=== PATIENT | female | born 1950 | race Caucasian/White ===

== ENCOUNTER → 2019-12-22 09:06 | Outpatient (CLI) | payer MEDICARE, OTHER, SELFPAY ==
--- NOTE | 2019-12-22 | DI.US.S_ITS ---
PROCEDURE: US ABDOMEN COMPLETE INDICATIONS: Unspecified abdominal pain TECHNIQUE: Real-time scanning was performed of the abdominal and retroperitoneal organs, with image documentation. COMPARISON: [facility], CT, ABDOMEN WITH CONTRAST, 12/31/2010, 13:28. [facility], US, ABDOMEN COMPLETE, 12/31/2010, 18:55. FINDINGS: Overall scan quality is limited by bowel gas. Liver: Liver is normal in size and homogeneous in echotexture. Gallbladder: The gallbladder is poorly seen, secondary to overlying bowel gas. No findings of gallstones or sludge are seen. The gallbladder wall is not thickened, measuring 3 mm or less. No specific pericholecystic fluid is seen. The sonographic Puri sign is negative. Biliary ducts: Intrahepatic bile ducts are non-dilated. Extrahepatic bile duct caliber measures 4 mm. Normal is 6-7 mm or less in diameter, or 10 mm or less post-cholecystectomy. Pancreas: Not well seen. Spleen: Spleen is normal in size and homogeneous in echotexture. Kidneys: Kidneys are normal in size and echotexture. Right kidney measures 9.2 cm long; left kidney measures 11.9 cm long. No solid masses. Moderate left-sided hydronephrosis is seen. The left proximal ureter measures 2.2 cm. A 5 mm left kidney echogenic focus is seen. Aorta: Visualized aorta is normal in caliber at less than 3 cm. Iliacs: Proximal common iliac arteries are normal in caliber at less than 2.5 cm. IVC: Intrahepatic inferior vena cava is patent. Miscellaneous: No free abdominal fluid. IMPRESSION: Moderate left-sided hydronephrosis, with a prominent proximal ureter. If clinically appropriate, please consider a follow-up CT study for further evaluation. An apparent 5 mm nonobstructing left-sided kidney stone is seen. The gallbladder demonstrates a normal sonographic appearance. No biliary dilatation is seen. Dictated by: Neeraj Hua M.D. on 12/22/2019 at 9:44 Approved by: Neeraj Hua M.D. on 12/22/2019 at 9:47
== END ==
PROVIDERS: Family Provider Family Medicine; PCP Family Medicine; Referring Provider Family Medicine; Visit Provider Family Medicine
DX: R10.9 Unspecified abdominal pain (principal); N20.0 Calculus of kidney; N13.30 Unspecified hydronephrosis
CPT/HCPCS: 76700

== ENCOUNTER → 2019-12-27 12:03 | Outpatient (CLI) | payer MEDICARE, OTHER, SELFPAY ==
--- NOTE | 2019-12-27 13:24 | DI.CT.S_ITS ---
PROCEDURE: CT ABDOMEN PELVIS W CON INDICATIONS: UNSPECIFIED ABD. PAIN TECHNIQUE: After the administration of oral and intravenous contrast, 5 mm thick sections acquired from the diaphragms to the symphysis. 5 mm thick coronal and sagittal reformats were performed. For radiation dose reduction, the following was used: automated exposure control, adjustment of mA and/or kV according to patient size. COMPARISON: [facility], CT, ABDOMEN WITH CONTRAST, 12/31/2010, 13:28. FINDINGS: Image quality: Excellent. ABDOMEN: Lung bases: Lung bases are clear. Heart size is normal. Solid organs: Liver is normal in size and enhancement. Gallbladder is within normal limits . Biliary system is non-dilated. Pancreas enhances normally. Spleen is normal in size and enhancement. No adrenal nodules. Kidneys are normal in size and enhancement, without hydronephrosis. Peritoneum and bowel: Moderate hiatal hernia. Stomach and small bowel are within normal limits. Colon is nondistended. There is diverticulosis of the descending and sigmoid colon. Moderate thickening of the proximal sigmoid colon is present, which demonstrates moderate surrounding fat stranding. There is a contained region of extra colonic gas and ill-defined soft tissue density within the soft tissues at the superomedial aspect of the proximal sigmoid colon, spanning roughly 32 mm. No free fluid or air. Normal appendix. Nodes and vessels: No retroperitoneal or mesenteric adenopathy. Aorta and inferior vena cava are normal in caliber. Miscellaneous: No ventral hernias. PELVIS: Genitourinary: Bladder wall thickness is normal. Miscellaneous: No inguinal hernias or adenopathy. Bones: No suspicious bony lesions. No vertebral body compression fractures. IMPRESSION: 1. Diverticulitis of the sigmoid colon associated with a contained perforation and extra colonic gas. No definite fluid in this region to indicate abscess. Close clinical follow-up with repeat imaging if clinically warranted is recommended to exclude developing abscess. 2. Follow-up colonoscopy is recommended to exclude underlying neoplasm. 3. Normal appendix. 4. Hiatal hernia. Dictated by: Zoila Marcial M.D. on 12/27/2019 at 14:18 Approved by: Zoila Marcial M.D. on 12/27/2019 at 14:24
== END ==
PROVIDERS: Family Provider Family Medicine; PCP Family Medicine; Referring Provider Family Medicine; Visit Provider Family Medicine
DX: R10.9 Unspecified abdominal pain (principal); K57.32 Diverticulitis of large intestine without perforation or abscess without bleeding; K44.9 Diaphragmatic hernia without obstruction or gangrene
CPT/HCPCS: 74177; Q9967

== ENCOUNTER → 2021-02-08 09:04 | Outpatient (CLI) | payer MEDICARE, OTHER, SELFPAY ==
[2021-02-08 10:48] LABS: COVID19 -Nasal RAPID Negative (Negative)
== END ==
PROVIDERS: Family Provider Family Medicine; PCP Family Medicine; Visit Provider Surgery
DX: Z01.812 Encounter for preprocedural laboratory examination (principal); Z20.822 Contact with and (suspected) exposure to COVID-19
CPT/HCPCS: 87635; C9803

== ENCOUNTER 2021-02-11 08:51 | Day surgery (SDC) | payer MEDICARE, OTHER, SELFPAY ==
[2021-02-11] VITALS (8 sets, daily range): BP systolic 96–117; BP diastolic 64–86; PULSE 70–82; RESP 12–18; TEMP 36.8; O2SAT 89–96; BMI 34.0
[2021-02-11] MEDS: LACTATED RINGERS 1,000 ML 200 ML IV (09:28)
--- NOTE | 2021-02-11 09:37 | PM.HP.1 ---
History of Present Illness History of Present Illness Date Patient Seen: 02/11/21 Time Patient Seen: 09:38 Chief complaint: DX COLONOSCOPY Narrative: 70-year-old woman with a history of uncomplicated diverticulitis here for a screening colonoscopy. She had an episode of diverticular disease within the past 1 year which was treated successfully with oral antibiotics. Her last colonoscopy was approximately 10 years ago and normal at that time. No personal or family history of intestinal malignancy. No blood per rectum hematemesis nausea vomiting unintentional weight loss. She has a history of irritable bowel syndrome and is followed by an outside GI group. Patient History Medical History Glaucoma Hx of pyloric stenosis Surgical History History of Hx of cataract surgery Hx of hysterectomy Hx of tonsillectomy Status post surgery (02/09/17) Family & Social History Family History Mother Ovarian cancer Father Lung cancer Social History: household members spouse Tobacco & Substance use: Smoking Status Never smoker alcohol intake never Substance Use Type does not use Meds Home Medications and Allergies Home Medications Medication Instructions Recorded Confirmed Type latanoprost 0.005 % eye drops #0 07/09/11 11/22/20 History (Xalatan) dorzolamide 22.3 mg-timolol 6.8 1 drp EYE-BOTH BID ml 11/22/20 02/11/21 History mg/mL eye drops meloxicam 7.5 mg tablet 7.5 mg PO DAILY tab 11/22/20 02/11/21 History Allergies Allergy/AdvReac Type Severity Reaction Status Date / Time adhesive [ADHESIVE] AdvReac Unknown redness Verified 11/22/20 10:35 Exam Vital Signs (past 8 hours): - 02/11/21 09:29 Temperature 98.2 F Pulse Rate 82 Respiratory Rate 16 Blood Pressure 105/74 Pulse Oximetry 95 Oxygen Delivery Method Room Air Narrative Exam Narrative: Constitutional-She is oriented to person, place and time. No apparent distress Cardiovascular- regular rate, no peripheral edema Pulmonary-unlabored respiratory effort, no audible wheezing Abdominal-soft, non-tender, non-distended \ Assessment & Plan Assessment and plan (1) Screening for colon cancer: Status: Acute Assessment & Plan narrative: The patient requires colorectal screening and colonoscopy is recommended. Technical details were discussed. Risks, benefits, alternatives explained. Risks including but not limited to myocardial infarction, aspiration, bleeding, pain, missed lesion, incomplete examination, need for further radiographic studies, colonic perforation, and need for major abdominal surgery were discussed. All questions were answered to their satisfaction, and they are in agreement with this plan. Time Spent With Patient Critical Care time: I spent a total of [] minutes of critical care time on this patient's care today; this time is exclusive of procedural time.
[2021-02-11] MEDS: MIDAZOLAM 5 MG/5 ML VIAL IV (09:47)
[2021-02-11] MEDS: fentaNYL 250 MCG/5 ML INJ IV (09:51)
--- NOTE | 2021-02-11 09:53 | P.OP.COLON_ITS ---
Operative Date/Time/Diagnoses Date of procedure: 02/11/21 Time of procedure: 09:53 Pre-op diagnosis: Diverticulitis Post-op diagnosis: other (Tortuous colon, diverticulosis) Procedure & Clinicians Study performed: Incomplete colonoscopy Indications: Diverticulitis Surgeon: Redd Reynolds Procedure Notes Procedure in detail: Medications: Conscious sedation using 5mg IV midazolam and 150mcg IV of fentanyl The history and physical was performed/updated and the patient is ASA class is 2. The procedure was discussed in detail with the patient. Potential risks complications including infection, bleeding, missed diagnosis, perforation, need for surgery, and were explained. Their questions were answered and informed consent was obtained. Patient was brought to the procedure room and placed standard monitoring equipment. The patient's vital signs were monitored continuously throughout the entire procedure. Prior to starting time-out was performed. The patient was placed in the left lateral recumbent position. Procedural sedation was administered. Examination began with a thorough inspection of the perianal area there was no evidence of fissures, fistulae, external hemorrhoids or cutaneous malignancy. The colonoscopy scope was then placed into the anal canal and was advanced forward. The sigmoid colon was notable for extensive diverticulosis however there was a pinpoint within the sigmoid colon that was extremely tortuous and despite using a pediatric scope repositioning the patient and applying external pressure no safe forward progress could be made. The procedure was aborted at this point and the scope was carefully withdrawn examining the mucosa in all directions. The patient tolerated the procedure well. They will be discharged once criteria are met. The prep was of good/excellent quality. The sedation time was 10 mi nutes. Specimen(s): none sent Complications: none Impression: Incomplete colonoscopy. Diverticulosis Post-procedure Plan for aftercare: Will schedule barium enema Disposition: same day surgery
--- NOTE | 2021-02-11 10:16 | SUR.PHASEI ---
received to PACU after colonoscopy with sedation. Report received from BERHANE Lawson.
--- NOTE | 2021-02-11 11:07 | SUR.PHASEII ---
patient ambulates to restroom with steady gait. states feels ready for dc. off o2 and has done well. sats remain >90%
== END 2021-02-11 11:08 | disposition home or self-care (01) ==
PROVIDERS: Family Provider Family Medicine; PCP Family Medicine; Referring Provider Surgery; Visit Provider Surgery
PROC: 0DJD8ZZ Inspection of Lower Intestinal Tract, Via Natural or Artificial Opening Endoscopic (ICD-10-PCS; CPT 45378; principal; 2021-02-11 10:00)
DX: Z12.11 Encounter for screening for malignant neoplasm of colon (principal); Z87.19 Personal history of other diseases of the digestive system; K57.30 Diverticulosis of large intestine without perforation or abscess without bleeding; Z53.8 Procedure and treatment not carried out for other reasons
CPT/HCPCS: G0121; 99152; J2250; J3010

== ENCOUNTER → 2021-02-28 08:55 | Outpatient (CLI) | payer MEDICARE, OTHER, SELFPAY ==
--- NOTE | 2021-02-28 08:57 | DI.RAD.S_ITS ---
PROCEDURE: FL BARIUM ENEMA W AIR CONTRAST INDICATIONS: incomplete colonoscopy COMPARISON: None. FINDINGS: KUB: Pre-procedural firmware test engineer film demonstrates a normal bowel gas pattern. No suspicious abdominal calcifications. No suspicious bony lesions. Colon: There is fairly rapid filling of the colon with contrast. The patient did not tolerate gaseous distension well. There is severe diverticulosis predominantly affecting the sigmoid colon and descending colon. There are small areas of narrowing in the descending colon which are transitory and likely due to peristalsis. However, there is a area of persistent narrowing in the distal sigmoid colon measuring approximately 2.8 cm in length which persisted despite attempted gaseous distension and additional barium enema. This was best seen on the lateral projection. The appendix is unremarkable. IMPRESSION: 1. Suspected stricture at the distal sigmoid colon measuring at approximately 2.8 cm in length. This could be due to colonic adenocarcinoma or post inflammatory. Correlation with CT from December 2019 demonstrates prior diverticulitis just proximal to this region. 2. Extensive diverticulosis. Preliminary results called to office of Dr. Reynolds at time of dictation. Dictated by: Lazaro Haley M.D. on 02/28/2021 at 11:42 Approved by: Lazaro Haley M.D. on 02/28/2021 at 11:51
== END ==
PROVIDERS: Family Provider Family Medicine; PCP Family Medicine; Referring Provider Surgery; Visit Provider Surgery
DX: Z12.11 Encounter for screening for malignant neoplasm of colon (principal); K57.30 Diverticulosis of large intestine without perforation or abscess without bleeding; K56.609 Unspecified intestinal obstruction, unspecified as to partial versus complete obstruction
CPT/HCPCS: 74280

== ENCOUNTER → 2021-05-06 09:08 | Outpatient (CLI) | payer MEDICARE, BC, SELFPAY ==
[2021-05-06 12:24] LABS: COVID19 -Nasal RAPID Negative (Negative)
== END ==
PROVIDERS: Family Provider Family Medicine; PCP Family Medicine; Visit Provider Surgery
DX: Z01.812 Encounter for preprocedural laboratory examination (principal); Z20.822 Contact with and (suspected) exposure to COVID-19
CPT/HCPCS: 87635

== ENCOUNTER 2021-05-08 07:42 | Inpatient (IN) | payer MEDICARE, BC, SELFPAY ==
[2021-04-23 09:48] VITALS: BMI 34.3
[2021-05-08] VITALS (17 sets, daily range): BP systolic 101–133; BP diastolic 62–89; PULSE 87–106; RESP 8–21; TEMP 36.2–36.7; O2SAT 93–99; BMI 34.3
--- NOTE | 2021-05-08 | PATH_ITS ---
[facility] Accession Number: [id number] No. of containers..02 Tissue . 01 Material submitted: . PART A: sigmoid colon - SEGMENT SIGMOID COLON PART B: stomach - ANASTOMOTIC DONUTS . 02 Diagnosis: A. Sigmoid Colon, Sigmoidectomy: Segment of colon with diverticulosis and serosal adhesions. Four benign pericolonic lymph nodes. Negative for active inflammation, granulomas, dysplasia or malignancy. . B. Anastomotic Donuts: Colonic tissue with no diagnostic abnormality. Negative for active inflammation, granulomas, dysplasia or malignancy. MRV 05/13/2021 1403 Local . 02 Electronically signed: . Adolfo Willard MD, PhD, Pathologist NPI- [id number] . 01 Gross description: . A. Received in formalin, labeled with the patient's name and designated segment sigmoid colon is a 17.0 cm long by 3.0 cm in diameter segment of colon, received closed with stapled ends (differentially inked blue and black). The serosa is focally disrupted with focal dense fibrous adhesions in the midportion and a moderate amount of attached fat. The wall is focally thickened up to 0.6 cm, otherwise 0.3 cm with between 5 and 10 diverticula up to 1.0 cm, and focally extending to within 0.1 cm from the fat surface. A discrete perforation is not grossly identified. The mucosa is pink-melvin with normal folding; no mucosal lesions are identified. Partial lymph node dissection yields four 0.2-0.5 cm melvin-pink possible lymph nodes. Gym Attendant sections are submitted as follows: . A1: Gym Attendant mucosal margins, perpendicular. A2-A3: Gym Attendant diverticula nearest surface, most suspicious for perforation (fat surface inked orange). A4: Four possible lymph nodes. . B. Received in formalin, labeled with the patient's name and designated anastomotic donuts are two 1.8 x 1.6 x 0.8 cm and 2.2 x 2.2 x 1.2 cm portions of annular melvin, focally hemorrhagic mucosa, the larger of which has a suture (inked blue). No discrete lesions are identified. Gym Attendant sections are submitted in B1. (CLEOPATRA:[id number]) /MRV 05/09/2021 1410 Local . 02 Pathologist provided ICD-10: K57.92 . 02 CPT . 554771, 219259 Specimen Comment: A courtesy copy of this report has been sent to [phone] Performed at: 01 [facility] [address] [facility], [place], [place] [id number] MD Hong Uribe MD Phone: [phone] Performed at: 02 [facility] [address] [place], [place] [id number] MD Gisell Galaviz MD Phone: [phone]
--- NOTE | 2021-05-08 08:36 | PM.PREOP ---
Pre-operative Note COVID-19 COVID-19 status: Negative Result date/Date tested (Pos, Neg/Pending): 05/06/21 Criteria for continued procedure: Non-surgical alternatives not available or appropriate per current SOC Interval Note History & Physical reviewed/Exam performed by Physician: Yes Changes to H&P: No
[2021-05-08] MEDS: LACTATED RINGERS 1,000 ML 100 ML IV ×4 (08:40→16:59)
--- NOTE | 2021-05-08 08:48 | PM.PREOP ---
Pre-operative Note Interval Note History & Physical reviewed/Exam performed by Physician: Yes Changes to H&P: No
[2021-05-08] MEDS: PIPERACILLIN/TAZO 4.5 GM in SODIUM CHLORIDE 0.9% 100 ML 200 ML IV (09:10)
--- NOTE | 2021-05-08 09:27 | SUR.OPER ---
Lithotomy on padded OR bed. [place] Pad Positioner under torso. Head on pillow, arms padded and tucked at sides. Legs secured in padded yellow fins stirrups.
[2021-05-08] MEDS: MINERAL OIL LIGHT TOPICAL 10 ML TOP (09:30)
--- NOTE | 2021-05-08 09:43 | PM.OP.1 ---
Procedure & Clinicians Procedure: Cystoscopy with bilateral ureteral catheter placement, Lynch catheter placement Same procedure as scheduled: Yes Surgeon: Cj Crane Click Yes if Unassisted: Yes Anesthesia Type: General Operative Notes Findings: External genitalia are normal. Urethral meatus is normal, urethra is normal along its length with normal mucosa. The ureteral orifices in normal position with clear efflux. There is moderate trabeculation within the bladder, the bladder mucosa is normal without sign of malignancy, fistula or other abnormality. There are no inflammatory changes or perceived thickening of the bladder. The lighted ureteral catheters were left in good position. A 16 Malagasy 5 cc Lynch catheters left in place with 10 cc of sterile water in the balloon the ureteral catheters having then Tegaderm to the Lynch catheter. Closure Type: not applicable Specimen(s): none sent Applied: catheter and other (Bilateral lighted ureteral catheters) Estimated Blood Loss (mL): 0 Blood products transfused: none Procedure in detail: After informed consent was obtained, the patient was identified, and brought to the operating room. The patient was then placed in a supine position on the operative table. Anesthesia was induced and maintained. After ensuring an adequate level of anesthesia the patient was transitioned to the lithotomy position. She was then prepped, draped and prepared in a sterile fashion for transurethral procedure. After prepping draping and ensuring an adequate level of anesthesia 21 Malagasy cystoscope was passed into the bladder via the urethra under direct vision. Cystoscopy was then performed and the findings noted. The left ureteral orifice was then identified and the sheath for the lighted ureteral catheter was passed up and into the left collecting system with the aid of a guidewire. Attention was then turned to the right ureteral orifice which was identified and the sheath was passed up and into the right collecting system without the aid of a guidewire. This right-sided catheter was marked on its distal terminus with 3 black markings. The lighted fiberoptic portion was then passed up and into each of the she has. Secured in place and left in position 16 Malagasy catheter was then passed through the urethra and into the bladder with the balloon was filled with 10 cc of sterile water. The ureteral catheters were then secured to the Lynch catheter via Tegaderm. With these maneuvers in place the catheter was placed to gravity drainage and the patient went on to laparoscopic procedure by Dr. Reynolds which will be dictated under separate cover. For this portion of the procedure the patient tolerated the procedure well and there were no complications. The catheters will be removed at the end of the procedure save the Lynch catheter which will be removed by Dr. Reynolds when no longer needed. Complications: none Post-operative Condition: stable Disposition: other (Per Dr. Reynolds) Plan for aftercare: Per Dr. Reynolds
[2021-05-08] MEDS: BUPIVACAINE 0.25% (PF) VIAL 30 ML INJ (10:27)
--- NOTE | 2021-05-08 14:27 | P.OP_ITS ---
Operative Date/Time/Diagnoses Date of procedure: 05/08/21 Time of procedure: 14:27 Pre-op diagnosis: Diverticulitis Post-op diagnosis: same Procedure & Clinicians Procedure: Laparoscopic assisted sigmoid colectomy Same procedure as scheduled: Yes Indications: 70-year-old woman history of complicated diverticulitis with perforation and abscess formation who developed a sigmoid stricture. She has undergone a colonoscopy the scope was unable to pass the stricture and a subsequent barium enema which confirmed the findings no other lesions within the colon. Surgeon: Redd Reynolds Cephalometric Technician: Pilo Herr Anesthesia Type: General Operative Notes Findings: Left ureter adherent to the lateral wall the sigmoid colon.Negative leak test Specimen(s): other (Sigmoid colon) Estimated Blood Loss (mL): 100 Procedure in detail: Patient was brought to the operating room placed supine on the table. Bilateral lower extremity compression devices were applied. She was intubated and received Zosyn prior to skin incision. Ureteral stents were placed by Dr. Crane of Urology. An infraumbilical incision was made the fascia was grasped elevated sharply incised the abdomen was entered atraumatically a balloon trocar was placed and pneumoperitoneum was established. General inspection of the abdomen was made. The sigmoid colon was adherent to the lateral wall where it had previously perforated and formed an abscess. There were minimal adhesions in the remainder of the abdomen. Additional 5 mm working ports were placed in the right and left lower quadrant and suprapubic. The sigmoid colon was approached in a lateral to medial fashion. The white line of Toldt was incised from the sigmoid colon to the level of the splenic flexure. The colon was mobilized medially. We then turned our attention towards the pelvis. The lateral aspect of the sigmoid colon was densely adherent to the sidewall. With the lighted ureteral stents we were able to identify the ureter as it crossed the iliac vessels made is way along the pelvic sidewall. The adhesions between the ureter in the sigmoid were sharply incised but this was not sufficient in order to separate the 2 structures safely under laparoscopic conditions. Therefore the procedure was converted to an open operation at this point. A generous midline incision was made. The ureter could now be palpated with its stent in place and the plane between the left ureter in the lateral wall the sigmoid colon was then developed with sharp careful dissection. The ureter could now be swept posteriorly and out of harm's way. The sigmoid colon was then divided at its proximal point were the colonic tissue with soft pliable with a TA a curved is stapler. The mesentery to the sigmoid colon was then divided with the LigaSure close to the wall of the bowel. This was continued down on to the proximal rectum. The junction between the sigmoid colon and the rectum where the tenia converged was identified and then the colon was transected just below the transition point in the mid rectum with a 2nd firing of the TA curved stapler. The descending colon did not reach the pelvis without tension and therefore it was further mobilized from the lateral wall all the way to the level of the spleen. The staple line was then transected from the colon and a 29 EEA anvil was then placed into the colon and pursestring with 3-0 Prolene. The and the bowel was trimmed to remove any extraneous tissue make sure that the staple line would be unobstructed. The EEA stapler was then inserted into the rectum and advanced forward. It is point was deployed and then the staple and the anvil were who connected under direct visualization. It was critical to have the assistance of my partner Dr. Pilo Herr for the creation of the anastomosis and for assistance with exposure in this obese woman with challenging anatomy given her previous diverticular perforation and the adherent nature of the ureter to the sigmoid colon. The anastomosis was then tested with the colonoscope insufflating the rectum there was no evidence of leak. A 19 [facility] [place] Jaya drain was then placed into the pelvis. Fascia was closed from above and below with 1. PDS suture. A 10 [place] Lucian drain was then placed into the subcutaneous space and brought out through the left abdominal wall. Subcutaneous tissue was then closed over the drain with 3-0 Vicryl suture skin closed with josé miguel. Patient tolerated the procedure well was transferred to recovery room in stable condition. The stents were removed at the end of the operation. Complications: none Post-operative Condition: stable Disposition: Acute Care
[2021-05-08] MEDS: HYDROMORPHONE 2 MG INJ 0.5 MG IV (15:38)
[2021-05-08] MEDS: ONDANSETRON 4 MG/2 ML INJ IV (16:38)
[2021-05-08] MEDS: KETOROLAC 30 MG/ML VIAL IV ×2 (16:49→19:50)
[2021-05-08] MEDS: PIPERACILLIN/TAZO 3.375 GM in SODIUM CHLORIDE 0.9% 100 ML 25 ML IV (16:57)
[2021-05-08] MEDS: HYDROMORPHONE 0.5 MG INJ IV (17:44)
--- NOTE | 2021-05-08 17:50 | PC.ADMIT ---
[email or web address] Admission Note: The patient,Veronica Dupont,70 y/o, was given written information regarding hospital policies, unit procedures and contact persons. Patient's smoking status: Former smoker. Vital Signs - 8 hr 05/08/21 13:45 05/08/21 13:50 05/08/21 13:55 Temperature 97.4 F L 97.7 F Pulse Rate 101 H 95 H 97 H Respiratory Rate 11 L 13 14 Blood Pressure 112/73 111/65 101/65 Pulse Oximetry 98 98 97 05/08/21 14:00 05/08/21 14:30 05/08/21 14:45 Temperature Pulse Rate 100 H 102 H 93 H Respiratory Rate 11 L 21 11 L Blood Pressure 119/73 105/65 109/67 Pulse Oximetry 98 98 99 05/08/21 15:00 05/08/21 15:15 05/08/21 15:30 Temperature 97.4 F L 97.9 F 97.2 F L Pulse Rate 97 H 96 H 94 H Respiratory Rate 17 13 8 L Blood Pressure 117/73 121/78 123/80 Pulse Oximetry 98 97 05/08/21 15:50 05/08/21 16:20 Temperature 97.4 F L Pulse Rate 90 87 Respiratory Rate 15 20 Blood Pressure 129/89 129/89 Pulse Oximetry 97 97 Patient admitted from PACU at [address] Reynolds's service. Patient is alert and oriented but lethargic. Daughter at bedside. Midline incision, two drains, bonilla, PIV with LR @ 100mls/hr. Complaints of pain and nausea. On 2L O2 NC, spO2 >95%. BP & RR WNL, HR mildly elevated low 100's. Call light at bedside, able to make needs known.
[2021-05-08] MEDS: CYCLOBENZAPRINE 10 MG TABLET PO (21:14)
[2021-05-08] MEDS: DOCUSATE 100 MG CAPSULE PO (21:14)
[2021-05-08] MEDS: LATANOPROST 0.005% OPHTH 2.5 ML 1 DROPS EYE-BOTH (21:14)
[2021-05-08] MEDS: DORZOLAMIDE/TIMOLOL OPHTH 10 ML 1 DROPS EYE-BOTH (21:14)
[2021-05-08] MEDS: OXYCODONE IR 5 MG TABLET PO (23:16)
[2021-05-09] VITALS (8 sets, daily range): BP systolic 94–115; BP diastolic 54–75; PULSE 72–83; RESP 17; TEMP 36.2–36.6; O2SAT 87–96
[2021-05-09] MEDS: ACETAMINOPHEN 325 MG TABLET 650 MG PO ×5 (00:21→23:37)
[2021-05-09] MEDS: PIPERACILLIN/TAZO 3.375 GM in SODIUM CHLORIDE 0.9% 100 ML 25 ML IV ×2 (00:26→08:14)
[2021-05-09] MEDS: KETOROLAC 30 MG/ML VIAL IV ×4 (01:32→20:07)
[2021-05-09] MEDS: LACTATED RINGERS 1,000 ML 100 ML IV (03:05)
[2021-05-09 05:30] LABS: Add Manual Diff / Slide Review NO; Basophils Absolute Auto 0 /uL (0-100); Eosinophils Absolute Auto 0 /uL (0-450); Eosinophils Percent Auto 0.1 % (2-4); Hemoglobin 10.3 g/dL (12.0-16.0); Lymphocytes Absolute Auto 500 /uL (1100-4500); Lymphocytes Percent Auto 4.3 % (25-40); Mean Corpuscular HGB Conc 33.2 % (30-36); Mean Corpuscular Volume 90.3 fL (80-100); Monocytes Absolute Auto 1000 /uL (0-900); Monocytes Percent Auto 8.7 % (3-14); Neutrophils Absolute Auto 10400 /uL (1500-7000); Neutrophils Percent Auto 86.9 % (50-75); Platelet Count 189 X10^3/uL (150-400); Red Blood Cell Count 3.43 X10^6/uL (4.0-5.2); Red Cell Distribution Width 13.9 % (11.6-14.8)
[2021-05-09 05:42] LABS: BUN Creatinine Ratio 17.3 (6-22); Blood Urea Nitrogen 18 mg/dL (7-17); Calcium 7.7 mg/dL (8.4-10.2); Carbon Dioxide 26 mmol/L (22-32); Chloride 105 mmol/L (98-107); Estimated Glomerular Filt Rate 52.5 mL/min (>60); Glucose 143 mg/dL (80-110); HEMOLYSIS < 15 (0-50); Potassium 4.5 mmol/L (3.4-5.1); Sodium 136 mmol/L (137-145)
[2021-05-09] MEDS: OXYCODONE IR 5 MG TABLET PO ×5 (06:01→23:38)
[2021-05-09] MEDS: ENOXAPARIN 40 MG/0.4 ML SYRINGE SUBCUT (08:14)
[2021-05-09] MEDS: DOCUSATE 100 MG CAPSULE PO ×2 (08:16→20:46)
[2021-05-09] MEDS: CYCLOBENZAPRINE 10 MG TABLET PO ×3 (08:16→20:46)
[2021-05-09] MEDS: LATANOPROST 0.005% OPHTH 2.5 ML 1 DROPS EYE-BOTH ×2 (08:17→20:46)
[2021-05-09] MEDS: DORZOLAMIDE/TIMOLOL OPHTH 10 ML 1 DROPS EYE-BOTH ×2 (08:17→20:46)
--- NOTE | 2021-05-09 08:25 | PM.PNPO.1 ---
Subjective Subjective Date Patient Seen: 05/09/21 Time Patient Seen: 08:25 Interval history: No acute events. Tolerate sips of clears. No flatus or bowel movement. Exam Vital Signs (past 8 hours): - 05/09/21 03:00 Temperature 97.6 F Pulse Rate 83 Respiratory Rate 17 Blood Pressure 113/75 Pulse Oximetry 93 Oxygen Delivery Method Nasal Cannula Oxygen Flow Rate 2 Narrative Exam Narrative: General adult female alert oriented no acute distress Abdomen soft appropriately tender to palpation. Abdominal drains serosanguineous Objective Labs Result Diagrams: 05/09/21 05:10 05/09/21 05:10 Labs: Laboratory Results - last 24 hr 05/09/21 05/09/21 05:10 05:10 WBC 12.0 H RBC 3.43 L Hgb 10.3 L Hct 31.0 L MCV 90.3 MCH 30.0 MCHC 33.2 RDW 13.9 Plt Count 189 Neut % (Auto) 86.9 H Lymph % (Auto) 4.3 L [place] % (Auto) 8.7 Eos % (Auto) 0.1 L Baso % (Auto) 0.0 Neut # (Auto) 51111 H Lymph # (Auto) 500 L [place] # (Auto) 1000 H Eos # (Auto) 0 Baso # (Auto) 0 Sodium 136 L Potassium 4.5 Chloride 105 Carbon Dioxide 26 BUN 18 H Creatinine 1.04 Estimated GFR 52.5 L BUN/Creatinine Ratio 17.3 Glucose 143 H Calcium 7.7 L PFSH Medical History (Updated 05/08/21 @ 06:38 by Wanda Huynh RN) Diverticulitis Diverticulosis Eczema Glaucoma History of arthritis History of molar Hx of pyloric stenosis IBS (irritable bowel syndrome) (2010) Obesity Sigmoid stricture Surgical History (Updated 05/08/21 @ 08:45 by Wanda Huynh RN) History of History of surgery (1951) Hx of bilateral cataract extraction Hx of cataract surgery (01/2016) Hx of hysterectomy (1978) Hx of tonsillectomy (1954) S/P excision of lipoma Status post surgery (02/09/17) Family History Mother Ovarian cancer Father Lung cancer Social History marital status: number of children: 5 household members: spouse and children occupational status: employed Smoking Status: Former smoker alcohol intake: never substance use type: does not use Type(s) of exercise: none Assessment & Plan Post-op Postoperative Procedures: Procedures Operation Date: 05/08/21 08:45 Actual Procedure Side Surgeon s Cystoscopy w/Placement of Ureteral Stent Bilateral Cj Crane MD p Laparoscopically Assisted Sigmoid Colectomy Redd Reynolds MD Postoperative status narrative: 70-year-old woman postoperative day 1 status post laparoscopic assisted sigmoid colectomy for diverticulitis. Overall doing well. -Diet-clear liquid advanced as tolerated -remove Lynch catheter -decrease IV fluids -out of bed ambulate physical therapy consult today -total of 24 hours perioperative antibiotic -SCDs and Lovenox for VTE prophylaxis
--- NOTE | 2021-05-09 11:20 | PT.IIE ---
Current Diagnoses Diverticulitis of intestine, part unspecified, without perforation or abscess without bleeding (05/08/21) Surgery Performed Operation Date: 05/08/21 08:45 Actual Procedures s Cystoscopy w/Placement of Lighted Ureteral Stents(Bilateral) - Cj Crane MD p Laparoscopically Assisted Sigmoid Colectomy - Redd Reynolds MD Surgical History (Last Updated 05/08/21 @ 08:45 by Wanda Huynh, RN) Status post surgery (02/09/17) Medical History (Last Updated 05/08/21 @ 06:38 by Wanda Huynh, RN) Diverticulitis Diverticulosis Eczema Glaucoma History of arthritis History of molar Hx of pyloric stenosis IBS (irritable bowel syndrome) (2010) Obesity Sigmoid stricture Physical Therapy Inpatient Evaluation/Re-Eval M1 PT/OT-IP Prior Functional Status Start: 05/09/21 13:52 Freq: NEEDED Status: Active Protocol: Document 05/09/21 11:20 AB (Rec: 05/09/21 14:[facility] Medical Review Prior Functional Status Medical History Reviewed Yes Communication able to make needs known Mobility and Gait pt stated that she is independent with all mobilities and ambulation without AD Social History Household Members spouse,children Living Arrangements House Number of Floors (Floors) Two Floors Number of Stairs To Enter/Railing? pt stays on main level of the house 5 steps L rail ascending to enter Home Environment Standard Height Toilet,Walk in Shower Home Equipment Raised Toilet Seat Without Armrests Additional Social History Comment has safety frame on the toilet pt has an adjustable bed at home pt will have her spouse and daughter to assist her at home M2 PT-IP Current Condition Start: 05/09/21 13:52 Freq: NEEDED Status: Active Protocol: Document 05/09/21 11:20 AB (Rec: 05/09/21 14:05 AB [email or web address]) Physical Therapy Current Condition Current Condition Evaluation Date 05/09/21 Treatment Diagnosis s/p colectomy; difficulty in walking Onset Date 05/08/21 M3 PT-IP Subjective Start: 05/09/21 13:52 Freq: NEEDED Status: Active Protocol: Document 05/09/21 11:20 AB (Rec: 05/09/21 14:05 [facility] Subjective Physical Therapy Visit Type Type Initial Evaluation Visit Start Time 11:20 Visit Stop Time 11:58 Total Visit Minutes 38 Number of HEALTH RESEARCHER Visits 0 Physical Therapy Visit Comments Patient Comments agreeable to do PT; daughter in room with pt Therapy Pain Assessment Pain When Pain Assessed During Mobility Pain Present Pain Present Pain Reported Location right abd Intensity 5 Scale Used Numeric (0 - 10) M4 PT-IP Mobility and Gait Start: 05/09/21 13:52 Freq: NEEDED Status: Active Protocol: Document 05/09/21 11:20 AB (Rec: 05/09/21 14:05 AB [email or web address]) PT-Bed Mobility Assessment Rolling Type of Rolling Log Rolling Level of Assist Maximal Assistance Supine to Sit Supine to Sit Maximum Assistance PT-Transfer Assessment Sit to and From Stand Sit to and from Stand Moderate Assistance,Maximum Assistance,1 Person Assistance ,Use of Upper Extremities Equipment Transfer Assistive Device Gait Belt,Front Wheeled Walker Orthotic/Prosthetic Devices or Brace: No Transfers Transfer Destination Chair Transfer Technique ambulated Transfer Ability Level of Assist Moderate Assistance,Maximum Assistance,1 Person Assistance ,Use of Upper Extremities Comments Mobility Comments educated pt on abdominal precautions and log roll bed mobility. BP in supine: 83/52. completed log roll bed mobility supine to sit max A and max cues. able to sit on EOB SBA. BP: 115/54. no c/o dizziness but with increase pain. completed sit to stand mod to max A and cues and ambulated ~ 12 ft using FWW mod to max A. pt agreed to sit on chair. sat on chair and positioned. call light and table placed within reach. Gait Assessment Gait Gait Assistance Required: Moderate Assistance,Maximum Assistance,1 Person Assist Distance (Feet) 12 Able to Maintain Weight Bearing Status Yes During Gait Assistive Devices Assistive Device Gait Belt,Front Wheeled Walker Orthotic/Prosthetic Devices or Brace: No Gait Deviations General Gait Pattern Decreased Stride Length, Decreased Feet Clearance,Step- to Gait Factors Limiting Gait Function Factors Limiting Gait Function Decreased Activity Tolerance, Decreased Strength, Incoordination,Limited Range of Motion,Pain,Poor Balance, Poor Safety Awareness, Respiratory Distress PT-Balance Assessment Sitting Balance and Reactions Static Sitting Balance Ability Good Dynamic Sitting Balance Ability Good Standing Balance and Reactions Static Standing Balance Ability Fair Dynamic Standing Balance Ability Fair Device Used FWW M5 PT-IP Objective Assessments Start: 05/09/21 13:52 Freq: NEEDED Status: Active Protocol: Document 05/09/21 11:20 AB (Rec: 05/09/21 14:05 AB [email or web address]) Orientation Orientation/Cognition Level of Alertness Alert Orientation Name,Situation Language Function Ability Hard of Hearing Safety Awareness Decreased Safety Awareness Memory Description Short Term Impaired Gross Range of Motion Lower Extremity ROM Assessment Within Functional Limits Strength Lower Extremity Strength Hip 4-/5 Knee 4-/5 Sensation Assessment Sensation Gross Sensation WNL Muscle Tone Muscle Tone WNL Yes M6 PT-IP Treatment Start: 05/09/21 13:52 Freq: NEEDED Status: Active Protocol: Document 05/09/21 11:20 AB (Rec: 05/09/21 14:05 AB [email or web address]) Physical Therapy Treatment Education Education Provided Precautions,Post-Op Packet, Safety M7 PT-IP Assessment and Plan Start: 05/09/21 13:52 Freq: NEEDED Status: Active Protocol: Document 05/09/21 11:20 AB (Rec: 05/09/21 14:05 AB [email or web address]) PT Summary Assessment and Plan Potential Rehabilitation Potential Fair Status of Condition at Evaluation Evolving Summary Impairments Pain,ROM,Strength,Balance, Coordination,Sensation,Tone, Cognition,Bed Mobility, Transfers,Gait,Activity Tolerance Assessment Summary pt requiring max A with bed mobility and mod to max for transfers/ambulation using fWW and has decrease activiyt tolerance affecting mobility independence. pt will likely progress during hospital stay and will conduct caregiver training when appropriate. pt also needs to complete stair climbing prior to d/c. will continue to assess progress. Goals Bed Mobility Goal Independent Transfer Goal Independent,Front Wheeled Walker Gait Goal Independent,Front Wheel Walker Gait Distance 200 Other Goals improve ambulation without AD 250 ft mod I up/down 5 steps L rail ascending mod I Days to Meet Goals 10 Frequency of Treatment Frequency Of Treatment Once a Day Treatment Plan Physical Therapy Treatment Plan Bed Mobility Training,Transfer Training,Gait Training, Therapeutic Exercise,Balance Retraining,Post Op Education, Discharge Planning,Hot or Cold Pack,Neuromuscular Re-ed, Coordination Retraining,Manual Therapy Precautions Abdominal Surgery Precautions Log Roll,Lifting Restrictions, Gait Belt above Incisional Area Recommendations To Nursing Amount of Assist Needed 1 Person Assist Discharge Recommendations PT Discharge Recommendations Home with Assistance,Home Health Equipment Needed for Home Before FWW if not safe without AD Discharge Transportation Needs at Discharge Private Vehicle
--- NOTE | 2021-05-09 13:09 | SUR.OPER ---
LIGHTED URETERAL STENTS REMOVED AT END OF SECOND ABDOMINAL PROCEDURE BY DR MALDONADO
--- NOTE | 2021-05-09 15:31 | OT.IPNOTE ---
Attempted OT eval and pt resting in bed and not wanting to get up at this time. Pt's daughter present in the room and both not sure if wanting OT services. Pt and daughter agreed to have OT come tomorrow and try OT eval to touch base with them regarding possible OT needs for ADL's after abdominal surgery. No charge
--- NOTE | 2021-05-09 18:05 | PC.NURSE ---
Pt doing well. Syed hein'd at 1400. Pt has been able to get up to BR to void. Requiring SBA with ambulation. Ambulated in the hallway. Pain well controlled with PO rx. PIV SL. VSS. Pt was noted to desat to 87% while sleeping and after receiving oxycodone. Placed on 3L while sleeping. Pt able to be weaned to RA while awake. Sats 93-95%.
[2021-05-10] VITALS (7 sets, daily range): BP systolic 87–94; BP diastolic 50–55; PULSE 77–87; RESP 16–19; TEMP 36.3–36.6; O2SAT 90–100
[2021-05-10] MEDS: OXYCODONE IR 5 MG TABLET PO ×4 (02:12→20:23)
[2021-05-10] MEDS: KETOROLAC 30 MG/ML VIAL IV ×2 (02:12→08:39)
[2021-05-10 05:35] LABS: Add Manual Diff / Slide Review NO; Basophils Absolute Auto 0 /uL (0-100); Basophils Percent Auto 0.1 % (0-2); Eosinophils Absolute Auto 200 /uL (0-450); Eosinophils Percent Auto 2.6 % (2-4); Hematocrit 24.6 % (36-46); Hemoglobin 8.3 g/dL (12.0-16.0); Lymphocytes Absolute Auto 1100 /uL (1100-4500); Lymphocytes Percent Auto 11.7 % (25-40); Mean Corpuscular HGB Conc 33.7 % (30-36); Mean Corpuscular Hemoglobin 30.4 PG (26-34); Mean Corpuscular Volume 90.4 fL (80-100); Monocytes Absolute Auto 600 /uL (0-900); Monocytes Percent Auto 6.4 % (3-14); Neutrophils Absolute Auto 7200 /uL (1500-7000); Neutrophils Percent Auto 79.2 % (50-75); Platelet Count 160 X10^3/uL (150-400); Red Blood Cell Count 2.72 X10^6/uL (4.0-5.2); Red Cell Distribution Width 13.6 % (11.6-14.8)
--- NOTE | 2021-05-10 05:50 | PC.NURSE ---
0500- Medicated x2 for pain. Up in room ad melissa. Voiding and had a small mucoid stool. Lungs are clear. 02 at 2 liters while sleeping appears to have undiagnosed LEI. Abdominal drains x2 Serosanguenous output. Aquacell intact with shadow drainage. Taking po well with no C/O nausea. Burping but not passing gas. Will monitor.
[2021-05-10 05:57] LABS: BUN Creatinine Ratio 20.2 (6-22); Blood Urea Nitrogen 18 mg/dL (7-17); Calcium 7.7 mg/dL (8.4-10.2); Carbon Dioxide 29 mmol/L (22-32); Chloride 106 mmol/L (98-107); Estimated Glomerular Filt Rate > 60.0 mL/min (>60); Glucose 98 mg/dL (80-110); HEMOLYSIS < 15 (0-50); Sodium 137 mmol/L (137-145)
[2021-05-10] MEDS: ENOXAPARIN 40 MG/0.4 ML SYRINGE SUBCUT (08:39)
[2021-05-10] MEDS: CYCLOBENZAPRINE 10 MG TABLET PO ×3 (08:39→21:24)
[2021-05-10] MEDS: DOCUSATE 100 MG CAPSULE PO ×2 (08:39→21:24)
[2021-05-10] MEDS: DORZOLAMIDE/TIMOLOL OPHTH 10 ML 1 DROPS EYE-BOTH ×2 (08:41→21:25)
[2021-05-10] MEDS: LATANOPROST 0.005% OPHTH 2.5 ML 1 DROPS EYE-BOTH ×2 (08:41→21:25)
[2021-05-10] MEDS: ACETAMINOPHEN 325 MG TABLET 650 MG PO ×2 (09:19→17:58)
--- NOTE | 2021-05-10 10:12 | P.PN_ITS ---
Subjective Subjective Date Patient Seen: 05/10/21 Time Patient Seen: 10:12 Interval history: Feels ok. +BM, not dizzy when she stands. Low BP with good perfusion. Exam Vital Signs (past 8 hours): - 05/10/21 05:23 05/10/21 07:00 05/10/21 08:30 Temperature 97.8 F 97.4 F L Pulse Rate 78 80 Respiratory Rate 17 16 Blood Pressure 87/54 L 87/52 L Pulse Oximetry 97 96 96 05/10/21 09:15 05/10/21 09:20 Temperature Pulse Rate 82 Respiratory Rate 19 Blood Pressure 94/55 L Pulse Oximetry 92 90 L Oxygen Delivery Method Room Air Oxygen Flow Rate 0 Narrative Exam Narrative: Pale, hard of hearing, comfortable. Const General: cooperative Nutritional Appearance: well nourished Orientation: alert and oriented x3 HENMT Ears: hearing grossly impaired Eyes Periorbital: periorbital findings normal Neck Neck: trachea midline Resp Effort & Inspection: normal respiratory effort and able to speak in complete sentences Cardio Rate: regular rate Rhythm: regular rhythm GI Inspection: distended and obesity Palpation: soft Other: drains are sanguous, no clots. dressing has minimal staining. Skin General: elasticity normal Neuro General: patient alert and patient oriented x3 Cognition: normal cognition Extrem General: normal to inspection Psych Mental Status: mental status grossly normal Affect: normal affect Judgment: judgment good Objective Labs Result Diagrams: 05/10/21 04:50 05/10/21 04:50 Labs: Laboratory Results - last 24 hr 05/10/21 05/10/21 04:50 04:50 WBC 9.0 RBC 2.72 L Hgb 8.3 L Hct 24.6 L MCV 90.4 MCH 30.4 MCHC 33.7 RDW 13.6 Plt Count 160 Neut % (Auto) 79.2 H Lymph % (Auto) 11.7 L [place] % (Auto) 6.4 Eos % (Auto) 2.6 Baso % (Auto) 0.1 Neut # (Auto) 7200 H Lymph # (Auto) 1100 [place] # (Auto) 600 Eos # (Auto) 200 Baso # (Auto) 0 Sodium 137 Potassium 4.0 Chloride 106 Carbon Dioxide 29 BUN 18 H Creatinine 0.89 Estimated GFR > 60.0 BUN/Creatinine Ratio 20.2 Glucose 98 Calcium 7.7 L [facility] Medical History (Updated 05/08/21 @ 06:38 by Wanda Huynh, RN) Diverticulitis Diverticulosis Eczema Glaucoma History of arthritis History of molar Hx of pyloric stenosis IBS (irritable bowel syndrome) (2010) Obesity Sigmoid stricture Surgical History (Updated 05/08/21 @ 08:45 by Wanda Huynh, RN) History of History of surgery (1951) Hx of bilateral cataract extraction Hx of cataract surgery (01/2016) Hx of hysterectomy (1978) Hx of tonsillectomy (1954) S/P excision of lipoma Status post surgery (02/09/17) Family History Mother Ovarian cancer Father Lung cancer Social History marital status: number of children: 5 household members: spouse and children occupational status: employed Smoking Status: Former smoker alcohol intake: never substance use type: does not use Type(s) of exercise: none Assessment & Plan Post-op Postoperative Procedures: Procedures Operation Date: 05/08/21 08:45 Actual Procedure Side Surgeon s Cystoscopy w/Placement of Lighted Ureteral Stents Bilateral Cj Crane MD p Laparoscopically Assisted Sigmoid Colectomy Redd Reynolds MD Postoperative status: doing well and anemia (drop in hct to 24%. No change in BP which is low but with appropriate mentation and urine output. ) Postoperative plan: routine post-op care, ambulate and advance diet Postoperative plan narrative: Acute blood loss anemia appears asymptomatic (hct 24%). Added vitamin with iron. return of GI function: advance diet. Switching to po meds. continue drains. Time Spent With Patient Time with patient: 15-24 minutes
[2021-05-10] MEDS: PRENATAL VIT,CALC/IRON/FOLIC 1 TABLET 1 TAB PO (10:49)
[2021-05-10] MEDS: CELECOXIB 200 MG CAPSULE PO ×2 (10:49→21:24)
[2021-05-10] MEDS: PANTOPRAZOLE DR 40 MG TABLET PO (10:49)
--- NOTE | 2021-05-10 11:32 | PT.IPTN ---
Current Diagnoses Diverticulitis of intestine, part unspecified, without perforation or abscess without bleeding (05/08/21) Surgery Performed Operation Date: 05/08/21 08:45 Actual Procedures s Cystoscopy w/Placement of Lighted Ureteral Stents(Bilateral) - Cj Crane MD p Laparoscopically Assisted Sigmoid Colectomy - Redd Reynolds MD Physical Therapy Treatment Note M2 PT-IP Current Condition Start: 05/09/21 13:52 Freq: NEEDED Status: Active Protocol: Document 05/09/21 11:20 AB (Rec: 05/09/21 14:05 AB [email or web address]) Physical Therapy Current Condition Current Condition Evaluation Date 05/09/21 Treatment Diagnosis s/p colectomy; difficulty in walking Onset Date 05/08/21 M3 PT-IP Subjective Start: 05/09/21 13:52 Freq: NEEDED Status: Active Protocol: Document 05/10/21 11:15 KS (Rec: 05/10/21 15:09 KS [id number]) Subjective Physical Therapy Visit Type Type Treatment Note Visit Start Time 11:15 Visit Stop Time 11:32 Total Visit Minutes 17 Number of WEB UI SOFTWARE ENGINEER Visits 1 Physical Therapy Visit Comments Patient Comments agreeable to do PT; daughter in room with pt M4 PT-IP Mobility and Gait Start: 05/09/21 13:52 Freq: NEEDED Status: Active Protocol: Document 05/10/21 11:15 [place] (Rec: 05/10/21 15:09 KS [id number]) PT-Transfer Assessment Sit to and From Stand Sit to and from Stand Contact Guard Assistance,1 Person Assistance Equipment Transfer Assistive Device Gait Belt Orthotic/Prosthetic Devices or Brace: No Transfers Transfer Destination Chair Transfer Technique ambulated w/o AD Transfer Ability Level of Assist Contact Guard Assistance,1 Person Assistance Comments Mobility Comments Pt in chair upon arrival w/ daughter in room and agreeable to ambulate. CGA for sit<> stand w/o AD. BP 91/50, pt denied any symptoms of low BP. She then ambulated ~120 ft in room CGA, O2 94-96% on RA during ambulation. Pt returned to chair and performed 1x10 bilateral ankle pumps, quad sets, and glute sets. Pt left in chair w/ OT in room. Gait Assessment Gait Gait Assistance Required: Contact Guard Assist Distance (Feet) 120 Able to Maintain Weight Bearing Status Yes During Gait Assistive Devices Assistive Device Gait Belt,Front Wheeled Walker Orthotic/Prosthetic Devices or Brace: No Gait Deviations General Gait Pattern Decreased Stride Length, Decreased Feet Clearance Factors Limiting Gait Function Factors Limiting Gait Function Decreased Activity Tolerance, Decreased Strength Comments Gait Comments Pt w/ slow pop and minimal ground clearance, but able to ambulate 120 ft w/o AD CGA. Denied increase in pain during ambulation. Stair Climbing Assessment Comments Stair Climbing Comments Plan to assess tomorrow AM. PT-Balance Assessment Sitting Balance and Reactions Static Sitting Balance Ability Good Dynamic Sitting Balance Ability Good Standing Balance and Reactions Static Standing Balance Ability Fair Dynamic Standing Balance Ability Fair Device Used FWW M5 PT-IP Objective Assessments Start: 05/09/21 13:52 Freq: NEEDED Status: Active Protocol: Document 05/09/21 11:20 AB (Rec: 05/09/21 14:05 AB [email or web address]) Orientation Orientation/Cognition Level of Alertness Alert Orientation Name,Situation Language Function Ability Hard of Hearing Safety Awareness Decreased Safety Awareness Memory Description Short Term Impaired Gross Range of Motion Lower Extremity ROM Assessment Within Functional Limits Strength Lower Extremity Strength Hip 4-/5 Knee 4-/5 Sensation Assessment Sensation Gross Sensation WNL Muscle Tone Muscle Tone WNL Yes M6 PT-IP Treatment Start: 05/09/21 13:52 Freq: NEEDED Status: Active Protocol: Document 05/10/21 11:15 [place] (Rec: 05/10/21 15:09 KS [id number]) Physical Therapy Treatment Exercises Exercises Ankle Pumps,Gluteal Sets,Quad Sets Education Education Provided Precautions,Post-Op Packet, Safety M7 PT-IP Assessment and Plan Start: 05/09/21 13:52 Freq: NEEDED Status: Active Protocol: Document 05/10/21 11:15 KS (Rec: 05/10/21 15:09 KS [id number]) PT Summary Assessment and Plan Potential Rehabilitation Potential Fair Status of Condition at Evaluation Evolving Summary Impairments Pain,ROM,Strength,Balance, Coordination,Sensation,Tone, Cognition,Bed Mobility, Transfers,Gait,Activity Tolerance Assessment Summary Pt w/ significant increase in mobility and activity tolerance today. CGA for transfers and ambulation. Able to ambulate ~120 ft w/o AD, decreased stride and foot clearance, O2 94-96%. Plan to complete caregiver training and stair training w/ pts daughter tomorrow morning. Goals Bed Mobility Goal Independent Transfer Goal Independent,Front Wheeled Walker Gait Goal Independent,Front Wheel Walker Gait Distance 200 Other Goals improve ambulation without AD 250 ft mod I up/down 5 steps L rail ascending mod I Days to Meet Goals 10 Frequency of Treatment Frequency Of Treatment Once a Day Treatment Plan Physical Therapy Treatment Plan Bed Mobility Training,Transfer Training,Gait Training, Therapeutic Exercise,Balance Retraining,Post Op Education, Discharge Planning,Hot or Cold Pack,Neuromuscular Re-ed, Coordination Retraining,Manual Therapy Precautions Abdominal Surgery Precautions Log Roll,Lifting Restrictions, Gait Belt above Incisional Area Recommendations To Nursing Amount of Assist Needed 1 Person Assist Discharge Recommendations PT Discharge Recommendations Home with Assistance,Home Health Equipment Needed for Home Before FWW if not safe without AD Discharge Transportation Needs at Discharge Private Vehicle
--- NOTE | 2021-05-10 12:17 | OT.IP.EVAL ---
Current Diagnoses Diverticulitis of intestine, part unspecified, without perforation or abscess without bleeding (05/08/21) Surgery Performed Operation Date: 05/08/21 08:45 Actual Procedures s Cystoscopy w/Placement of Lighted Ureteral Stents(Bilateral) - Cj Crane MD p Laparoscopically Assisted Sigmoid Colectomy - Redd Reynolds MD Past Medical History (Last Updated 05/08/21 @ 06:38 by Wanda Huynh, RN) Diverticulitis Diverticulosis Eczema Glaucoma History of arthritis History of History of molar History of surgery (1951) Hx of bilateral cataract extraction Hx of cataract surgery (01/2016) Hx of hysterectomy (1978) Hx of pyloric stenosis Hx of tonsillectomy (1954) IBS (irritable bowel syndrome) (2010) Obesity S/P excision of lipoma Sigmoid stricture Surgical History (Last Updated 05/08/21 @ 08:45 by Wanda Huynh, RN) History of History of surgery (1951) Hx of bilateral cataract extraction Hx of cataract surgery (01/2016) Hx of hysterectomy (1978) Hx of tonsillectomy (1954) S/P excision of lipoma Status post surgery (02/09/17) Occupational Therapy Inpatient Evaluation/Re-Eval M1 PT/OT-IP Prior Functional Status Start: 05/09/21 13:52 Freq: NEEDED Status: Active Protocol: Document 05/10/21 14:45 CGR (Rec: 05/10/21 15:16 CGR [id number]) Medical Review Prior Functional Status Medical History Reviewed Yes Communication able to make needs known Mobility and Gait pt stated that she is independent with all mobilities and ambulation without AD Activities of Daily Living and IADL's Pt was IND in all ADLs and 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 5 steps up to main level. Pt does not need to go to the basement. Home Environment Standard Height Toilet,Walk in Shower Home Equipment Raised Toilet Seat Without Armrests,Shower Seat without Backrest,Site Supervising Technical Operator Employment Status Self-Employed Additional Social History Comment has safety frame on the toilet pt has an adjustable bed at home pt will have her spouse and daughter to assist her at home M1 PT/OT-IP Prior Functional Status Start: 05/10/21 14:43 Freq: NEEDED Status: Active Protocol: Document 05/10/21 14:45 CGR (Rec: 05/10/21 15:16 CGR [id number]) Medical Review Prior Functional Status Medical History Reviewed Yes Communication able to make needs known Mobility and Gait pt stated that she is independent with all mobilities and ambulation without AD Activities of Daily Living and IADL's Pt was IND in all ADLs and 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 5 steps up to main level. Pt does not need to go to the basement. Home Environment Standard Height Toilet,Walk in Shower Home Equipment Raised Toilet Seat Without Armrests,Shower Seat without Backrest,Site Supervising Technical Operator Employment Status Self-Employed Additional Social History Comment has safety frame on the toilet pt has an adjustable bed at home pt will have her spouse and daughter to assist her at home M2 OT-IP Current Condition Start: 05/10/21 14:43 Freq: Status: Active Protocol: Document 05/10/21 14:45 CGR (Rec: 05/10/21 15:16 CGR [id number]) Occupational Therapy Current Condition Current Condition Evaluation Date 05/10/21 Treatment Diagnosis lap alecia for diverticulitis Diagnosis Onset Date 05/08/21 M3 OT- IP Subjective and Pain Start: 05/10/21 14:43 Freq: Status: Active Protocol: Document 05/10/21 14:45 CGR (Rec: 05/10/21 15:16 CGR [id number]) OT- Subjective Occupational Therapy Visit Type Type Initial Evaluation Visit Start Time 11:33 Visit Stop Time 12:17 Total Visit Minutes 44 Notes Pt's daughter present throughout session. P.T.A just finishing when OT entered. OT Pain Assessment Pain When Pain Assessed At Rest Pain Present Pain Present Pain Reported Location right abd Intensity 2 Scale Used Numeric (0 - 10) Management Techniques Modification of Treatment,Re- positioning M4 OT- IP ADL's Start: 05/10/21 14:43 Freq: Status: Active Protocol: Document 05/10/21 14:45 CGR (Rec: 05/10/21 15:16 CGR [id number]) OT [id number] Comments OT Self-Feeding Comments not meal time OT ADL-Grooming Comments OT Grooming Comments Not performed OT ADL-Oral Care Comments Oral Care Comments Not performed OT ADL-Dressing General Eval Lower Body Dressing Ability Standby Assistance,Minimal Assistance Areas Needing Assistance Underpants/Brief,Pants/Shorts, Socks Assistive Devices Dressing Assistive Devices Site Supervising Technical Operator Comments OT Dressing Comments Educated pt on donning and doffing socks seated in chair by bringing foot up to knee. Pt then educated on donning underwear and pants using a field cane scaler helper and she performed with min a. OT ADL-Toileting General Evaluation Toileting Ability Standby Assistance Comments OT Toileting Comments urinated seated on toielt OT ADL-Bathing Comments OT Bathing Comments Not performed M5 OT- IP IADL's Start: 05/10/21 14:43 Freq: Status: Active Protocol: Document 05/10/21 14:45 CGR (Rec: 05/10/21 15:16 CGR [id number]) OT-Instrumental Activities of Daily Living Deficits IADL Deficits Identified No Deficits Home Safety Awareness Awareness of Need for Assistance at Home Good Awareness Ability to Problem Solve Emergency Able to Problem Solve Situations Medication Management Medication Management No Deficits Identified Money Management Money Management No Deficits Identified Meal Preparation Meal Preparation Caregiver Provides Assist Vending Machine Host/Hostess Vending Machine Host/Hostess Caregiver Provides Assist M6 OT- IP Functional Cognition Start: 05/10/21 14:43 Freq: Status: Active Protocol: Document 05/10/21 14:45 CGR (Rec: 05/10/21 15:16 CGR [id number]) Cognitive Factors Limiting Selfcare Function Cognitive Ability Level of Alertness Alert Patient Orientation Name,Age,Birthday,Month,Date, Year,Day of Week,Place, Situation Attention Span Ability Capable of Focused Attention, Capable of Sustained Attention Ability to Follow Commands Able to Follow Multi-Step Commands OT- Vision and Hearing OT- Hearing Assessment OT- Hearing Assessment Hearing Impaired OT- Vision Assessment Visual Attentiveness WFL Occular Pursuits WFL Visual Convergence WFL M7 OT- IP Mobility and Balance Start: 05/10/21 14:43 Freq: Status: Active Protocol: Document 05/10/21 14:45 CGR (Rec: 05/10/21 15:16 CGR [id number]) OT-Transfer Assessment Sit to and From Stand Sit to and from Stand Standby Assistance Transfers Transfer Ability Standby Assistance Technique Transfer Destination Car,Toilet Transfer Technique Stand Step Pivot Devices Transfer Assistive Devices Gait Belt Comments Mobility Comments Mobility around the room without AD OT- Balance Assessment Sitting Balance and Reactions Static Sitting Balance Ability Good Dynamic Sitting Balance Ability Good M8 OT- IP Objective Assessments Start: 05/10/21 14:43 Freq: Status: Active Protocol: Document 05/10/21 14:45 CGR (Rec: 05/10/21 15:16 CGR [id number]) OT Gross Range of Motion Upper Extremity Range of Motion Assessment Within Functional Limits OT Strength Upper Extremity Strength Assessment Within Functional Limits Comments Strength Comments 4/5 except b hands 3+/5. Pt states arthritis. OT- Coordination Assessment Upper Extremity Finger to Nose Test Within Functional Limits Finger Tapping Test Within Functional Limits OT-Muscle Tone Assessment Muscle Tone WNL Yes OT Sensation Assessment Edema Edema Absent M9 OT- IP Assessment and Plan Start: 05/10/21 14:43 Freq: Status: Active Protocol: Document 05/10/21 14:45 CGR (Rec: 05/10/21 15:16 CGR [id number]) OT Summary Assessment and Plan Potential Rehabilitation Potential Excellent Analytic Complexity at Evaluation Moderate Summary OT Impairments Pain,Strength,Balance, Functional Mobility,Dressing, Toileting,Bathing,Toilet Transfers,Shower Transfers, Activity Tolerance Progress Towards Goals Progressing Toward Goals,Safe For Discharge Assessment Summary Pt presents s/p lap alecia for diverticulitis. Pt presents with slight deficits to ADls and functional mobility but is progressing well. Educated on LB dressing, home safety, endurance, shower safety, and car transfers. All questions answered. No further OT needs. Frequency of Treatment Frequency Of Treatment Discharge Discharge Recommendations OT Discharge Recommendations Home with Assistance Transportation Needs at Discharge Private Vehicle
--- NOTE | 2021-05-10 14:01 | CM.IDA ---
Initial DCP Assessment Note Pt is a 70yo female, resident of [place], now POD#2 Cystoscopy w/Placement of Lighted Ureteral Stent, Bilateral w/Cj Crane MD and Laparoscopically Assisted Sigmoid Colectomy by Redd Reynolds MD PCP: Rajesh Ashton Payer: MCR/BCBS Reviewed chart, according to surgeon's note- advancing diet, continuing drains, and switching to po meds. Therapy team recommending home w/family. attempted assessment w/patient this morning and she was sleeping soundly. Placed call to spouse Ángel, introduced role. Spouse explained dtr Vicki was assigned visitor for patient during hospitalization and she will be staying w/patient/spouse upon patient's return home- to assist as needed. Dtr Crissy has also taken time off work to assist patient as needed Discussed HH services and spouse not sure this will be needed; will discuss w/his dtrs and let CM team know if HH or any other referrals would be helpful upon this patient's DC Plan: DC home w/family when medically cleared, via family pov, close outpatient f/u, r/o need HH RN/PT upon DC KEON Angel Discharge Planning/Care Management CM Discharge Assessment Start: 05/09/21 16:09 Freq: Status: Active Protocol: Document 05/10/21 13:59 LISANDRA (Rec: 05/10/21 14:01 LISANDRA [id number]) Discharge Planning Assessment Assigned Medical Imaging Specialist KEON Hoffman DPOA/Assigned Designee Name Ángel Dupont, spouse Contact Information [phone] Advance Directives? No History Provided By Patient,Family Member,Medical Record Prior Living Arrangements House Household Members spouse,children Type of transporation used prior to Drives own vehicle admit Independent with ADL's Yes Is patient alert and oriented? Yes Barriers to Discharge No Comment Home w/family, r/o need or request for HH closer to DC Discharge Plan Home Transportation Arrangement Family Referrals Initiated None needed Medicare Choice List Provided No
--- NOTE | 2021-05-10 15:04 | DIET.PN1 ---
Dietary Progress Note Assessment: Pt denies any N/V. Seems to be tolerating adv diet well. Daughter at bedside and researching low residue diets. Ht: 162.56 cm Wt: 90.718 kg BMI: 34.3 Last BM: 05/10/21 (05/10/21 08:30) MNA: 13 Dimitri Score: 20 Diet: 05/10/21 Lunch General (Regular) Diet Diet Modifications: Nutrition Percent Meal Consumed 50% 05/10/21 13:39 Percent Meal Consumed 25% 05/09/21 10:01 Percent Meal Consumed 25% 05/08/21 17:02 Labs: RBC 2.72 X10^6/uL (4.0-5.2) L 05/10/21 04:50 Hgb 8.3 g/dL (12.0-16.0) L 05/10/21 04:50 Hct 24.6 % (36-46) L 05/10/21 04:50 Creatinine 0.89 mg/dL (0.52-1.04) 05/10/21 04:50 Interventions: Provided low fiber MNT education and how to slowly incorporate fiber over time. Pt very amenable. Electronically Signed by: Leona Kelsey 05/10/21 15:04 Clinical Dietitian [address] [address]
[2021-05-11] MEDS: ACETAMINOPHEN 325 MG TABLET 650 MG PO ×4 (00:24→21:19)
[2021-05-11] MEDS: OXYCODONE IR 5 MG TABLET PO ×4 (00:24→21:19)
[2021-05-11 05:27] LABS: Add Manual Diff / Slide Review NO; Basophils Absolute Auto 0 /uL (0-100); Basophils Percent Auto 0.2 % (0-2); Eosinophils Absolute Auto 400 /uL (0-450); Hematocrit 25.8 % (36-46); Hemoglobin 8.8 g/dL (12.0-16.0); Lymphocytes Absolute Auto 1600 /uL (1100-4500); Lymphocytes Percent Auto 19.4 % (25-40); Mean Corpuscular HGB Conc 33.9 % (30-36); Mean Corpuscular Hemoglobin 30.8 PG (26-34); Mean Corpuscular Volume 90.6 fL (80-100); Monocytes Absolute Auto 500 /uL (0-900); Monocytes Percent Auto 5.3 % (3-14); Neutrophils Absolute Auto 5900 /uL (1500-7000); Neutrophils Percent Auto 70.1 % (50-75); Platelet Count 183 X10^3/uL (150-400); Red Blood Cell Count 2.85 X10^6/uL (4.0-5.2); White Blood Cell Count 8.5 X10^3/uL (4.5-11.0)
[2021-05-11 05:51] LABS: Blood Urea Nitrogen 15 mg/dL (7-17); Calcium 8.3 mg/dL (8.4-10.2); Carbon Dioxide 28 mmol/L (22-32); Chloride 106 mmol/L (98-107); Estimated Glomerular Filt Rate > 60.0 mL/min (>60); Glucose 104 mg/dL (80-110); HEMOLYSIS 26 (0-50); Sodium 136 mmol/L (137-145)
[2021-05-11 06:37] VITALS: BP 104/55; PULSE 79; RESP 14; TEMP 36.6; O2SAT 97
[2021-05-11] MEDS: DOCUSATE 100 MG CAPSULE PO ×2 (09:28→21:19)
[2021-05-11] MEDS: PRENATAL VIT,CALC/IRON/FOLIC 1 TABLET 1 TAB PO (09:28)
[2021-05-11] MEDS: LATANOPROST 0.005% OPHTH 2.5 ML 1 DROPS EYE-BOTH ×2 (09:28→21:19)
[2021-05-11] MEDS: CELECOXIB 200 MG CAPSULE PO ×2 (09:28→21:19)
[2021-05-11] MEDS: CYCLOBENZAPRINE 10 MG TABLET PO ×3 (09:28→21:19)
[2021-05-11] MEDS: DORZOLAMIDE/TIMOLOL OPHTH 10 ML 1 DROPS EYE-BOTH ×2 (09:29→21:18)
[2021-05-11] MEDS: PANTOPRAZOLE DR 40 MG TABLET PO (10:12)
--- NOTE | 2021-05-11 11:42 | PT.IPTN ---
Current Diagnoses Diverticulitis of intestine, part unspecified, without perforation or abscess without bleeding (05/08/21) Surgery Performed Operation Date: 05/08/21 08:45 Actual Procedures s Cystoscopy w/Placement of Lighted Ureteral Stents(Bilateral) - Cj Crane MD p Laparoscopically Assisted Sigmoid Colectomy - Redd Reynolds MD Physical Therapy Treatment Note M2 PT-IP Current Condition Start: 05/09/21 13:52 Freq: NEEDED Status: Active Protocol: Document 05/09/21 11:20 AB (Rec: 05/09/21 14:05 AB [id number]) Physical Therapy Current Condition Current Condition Evaluation Date 05/09/21 Treatment Diagnosis s/p colectomy; difficulty in walking Onset Date 05/08/21 M3 PT-IP Subjective Start: 05/09/21 13:52 Freq: NEEDED Status: Active Protocol: Document 05/11/21 11:18 KS (Rec: 05/11/21 13:11 KS [id number]) Subjective Physical Therapy Visit Type Type Treatment Note Visit Start Time 11:18 Visit Stop Time 11:42 Total Visit Minutes 24 Number of MECHANICAL PRESS OPERATOR Visits 2 Physical Therapy Visit Comments Patient Comments agreeable to do PT; daughter in room with pt M4 PT-IP Mobility and Gait Start: 05/09/21 13:52 Freq: NEEDED Status: Active Protocol: Document 05/11/21 11:18 KS (Rec: 05/11/21 13:11 KS [id number]) PT-Bed Mobility Assessment Supine to Sit Supine to Sit Standby Assistance Scooting Scooting to Edge of Bed Standby Assistance PT-Transfer Assessment Sit to and From Stand Sit to and from Stand Standby Assistance,1 Person Assistance,Use of Upper Extremities Equipment Transfer Assistive Device Gait Belt,Front Wheeled Walker Orthotic/Prosthetic Devices or Brace: No Transfers Transfer Destination Chair Transfer Technique Ambulated w/ and w/o AD Transfer Ability Level of Assist Standby Assistance,Contact Guard Assistance,1 Person Assistance Comments Mobility Comments Pt in bed upon arrival, SBA for sup<>sit and scooting EOB as well as sit<>stand w/ FWW. Pt then ambulated ~350 ft to stair well w/ FWW SBA O2 94-98 % on RA w/ w/c follow by pts daughter. She ascended/ descended 6 steps total w/ L rail step to pattern on first 3 and step over step on 4-6 SBA no cues. She ambulated additional 350 ft back to room w/ FWW SBA and reported some feeling of a lump in her chest especially when she swallows, RN notified. Pt left in chair w/ daughter in room and all needs in reach. Gait Assessment Gait Gait Assistance Required: Standby Assistance Distance (Feet) 700 Able to Maintain Weight Bearing Status Yes During Gait Assistive Devices Assistive Device Gait Belt,Front Wheeled Walker Orthotic/Prosthetic Devices or Brace: No Gait Deviations General Gait Pattern Decreased Stride Length, Decreased Feet Clearance Factors Limiting Gait Function Factors Limiting Gait Function Decreased Activity Tolerance, Decreased Strength Comments Gait Comments Pt w/ increased speed w/ FWW able to tolerate ~700 ft ambulation on RA O2 mid to high 90s, no LOB or cues needed. Daughter has ordered FWW for home use. Stair Climbing Assessment Evaluation Level of Assist On Stairs Standby Assistance,1 Person Assistance Devices Stair Climbing Assistive Devices Left Railing Technique/Endurance Stair Climbing Direction Ascend and Descend Stair Climbing Technique Step Over Step,Step to Step Number of Steps Climbed 3 Stair Climbing Set # Repetitions (reps) 2 Comments Stair Climbing Comments Pt ascended/descended 6 total steps w/ SBA step to on 1-3 and step over step on 4-6. No LOB or cues needed. Pt feels safe to complete steps into home upon d/c. PT-Balance Assessment Sitting Balance and Reactions Static Sitting Balance Ability Good Dynamic Sitting Balance Ability Good Standing Balance and Reactions Static Standing Balance Ability Good Dynamic Standing Balance Ability Good Device Used FWW M5 PT-IP Objective Assessments Start: 05/09/21 13:52 Freq: NEEDED Status: Active Protocol: Document 05/09/21 11:20 AB (Rec: 05/09/21 14:05 AB [id number]) Orientation Orientation/Cognition Level of Alertness Alert Orientation Name,Situation Language Function Ability Hard of Hearing Safety Awareness Decreased Safety Awareness Memory Description Short Term Impaired Gross Range of Motion Lower Extremity ROM Assessment Within Functional Limits Strength Lower Extremity Strength Hip 4-/5 Knee 4-/5 Sensation Assessment Sensation Gross Sensation WNL Muscle Tone Muscle Tone WNL Yes M6 PT-IP Treatment Start: 05/09/21 13:52 Freq: NEEDED Status: Active Protocol: Document 05/11/21 11:18 KS (Rec: 05/11/21 13:11 KS [id number]) Physical Therapy Treatment Education Education Provided Precautions,Post-Op Packet, Safety M7 PT-IP Assessment and Plan Start: 05/09/21 13:52 Freq: NEEDED Status: Active Protocol: Document 05/11/21 11:18 KS (Rec: 05/11/21 13:11 KS [id number]) PT Summary Assessment and Plan Potential Rehabilitation Potential Fair Status of Condition at Evaluation Evolving Summary Impairments Pain,ROM,Strength,Balance, Coordination,Sensation,Tone, Cognition,Bed Mobility, Transfers,Gait,Activity Tolerance Progress Towards Goals Progressing Toward Goals Assessment Summary Pt continues to make progress w/ mobility and activity tolerance. Able to ambulate 700 ft and ascend/descend 6 steps w/ unilateral rail SBA. O2 mid to high 90s throughout treatment. Pt reported feeling a lump in chest and RN notified. She and her daughter state they feel safe ( mobility helm) for ot to go home. Goals Bed Mobility Goal Independent Transfer Goal Independent,Front Wheeled Walker Gait Goal Independent,Front Wheel Walker Gait Distance 200 Other Goals improve ambulation without AD 250 ft mod I up/down 5 steps L rail ascending mod I Days to Meet Goals 10 Frequency of Treatment Frequency Of Treatment Once a Day Treatment Plan Physical Therapy Treatment Plan Bed Mobility Training,Transfer Training,Gait Training, Therapeutic Exercise,Balance Retraining,Post Op Education, Discharge Planning,Hot or Cold Pack,Neuromuscular Re-ed, Coordination Retraining,Manual Therapy Precautions Abdominal Surgery Precautions Log Roll,Lifting Restrictions, Gait Belt above Incisional Area Recommendations To Nursing Amount of Assist Needed 1 Person Assist Discharge Recommendations PT Discharge Recommendations Home with Assistance,Home Health Equipment Needed for Home Before Pts daughter has ordered FWW Discharge for pt home use. Transportation Needs at Discharge Private Vehicle
--- NOTE | 2021-05-11 12:09 | P.PN_ITS ---
Subjective Subjective Date Patient Seen: 05/11/21 Time Patient Seen: 12:09 Interval history: Patient appears markedly improved. C/o vitamin sticking in the throat. Exam Vital Signs (past 8 hours): - 05/11/21 06:37 Temperature 97.9 F Pulse Rate 79 Respiratory Rate 14 Blood Pressure 104/55 L Pulse Oximetry 97 Oxygen Delivery Method Nasal Cannula Oxygen Flow Rate 2 Narrative Exam Narrative: General appearance improved. hct stable, improved BP. Drains serous. Objective Labs Result Diagrams: 05/11/21 04:40 05/11/21 04:40 Labs: Laboratory Results - last 24 hr 05/11/21 05/11/21 04:40 04:40 WBC 8.5 RBC 2.85 L Hgb 8.8 L Hct 25.8 L MCV 90.6 MCH 30.8 MCHC 33.9 RDW 14.0 Plt Count 183 Neut % (Auto) 70.1 Lymph % (Auto) 19.4 L [place] % (Auto) 5.3 Eos % (Auto) 5.0 H Baso % (Auto) 0.2 Neut # (Auto) 5900 Lymph # (Auto) 1600 [place] # (Auto) 500 Eos # (Auto) 400 Baso # (Auto) 0 Sodium 136 L Potassium 4.0 Chloride 106 Carbon Dioxide 28 BUN 15 Creatinine 0.79 Estimated GFR > 60.0 BUN/Creatinine Ratio 19.0 Glucose 104 Calcium 8.3 L PFSH Medical History (Updated 05/08/21 @ 06:38 by Wanda Huynh RN) Diverticulitis Diverticulosis Eczema Glaucoma History of arthritis History of molar Hx of pyloric stenosis IBS (irritable bowel syndrome) (2010) Obesity Sigmoid stricture Surgical History (Updated 05/08/21 @ 08:45 by Wanda Huynh RN) History of History of surgery (1951) Hx of bilateral cataract extraction Hx of cataract surgery (01/2016) Hx of hysterectomy (1978) Hx of tonsillectomy (1954) S/P excision of lipoma Status post surgery (02/09/17) Family History Mother Ovarian cancer Father Lung cancer Social History marital status: number of children: 5 household members: spouse and children occupational status: employed Smoking Status: Former smoker alcohol intake: never substance use type: does not use Type(s) of exercise: none Assessment & Plan Post-op Postoperative Procedures: Procedures Operation Date: 05/08/21 08:45 Actual Procedure Side Surgeon s Cystoscopy w/Placement of Lighted Ureteral Stents Bilateral Cj Crane MD p Laparoscopically Assisted Sigmoid Colectomy Redd Reynolds MD Postoperative status: doing well Postoperative plan: routine post-op care Postoperative plan narrative: Acute blood loss anemia: vitamin with iron, repeat CBC, continue PPI, restart Lovenox S/p sigmoid colectomy: remove left drain and replace dressings. Diet is regular Anticipate discharge on Thursday, Transfer from ICU
[2021-05-11 14:00] VITALS: BP 103/59; PULSE 79; RESP 16; TEMP 36.6; O2SAT 98
[2021-05-11] MEDS: HYDROMORPHONE 0.5 MG INJ IV (15:54)
[2021-05-11 22:00] VITALS: BP 160/52; PULSE 72; RESP 18; TEMP 37; O2SAT 95
[2021-05-12] MEDS: ACETAMINOPHEN 325 MG TABLET 650 MG PO ×4 (02:24→18:15)
[2021-05-12] MEDS: OXYCODONE IR 5 MG TABLET PO ×5 (02:24→20:04)
[2021-05-12 05:38] LABS: Hematocrit 23.4 % (36-46)
[2021-05-12 06:00] VITALS: BP 110/66; PULSE 86; RESP 16; TEMP 36.6; O2SAT 98
[2021-05-12 08:36] VITALS: O2SAT 98
[2021-05-12] MEDS: DORZOLAMIDE/TIMOLOL OPHTH 10 ML 1 DROPS EYE-BOTH ×2 (09:13→21:19)
[2021-05-12] MEDS: LATANOPROST 0.005% OPHTH 2.5 ML 1 DROPS EYE-BOTH ×2 (09:13→21:19)
[2021-05-12] MEDS: ENOXAPARIN 40 MG/0.4 ML SYRINGE SUBCUT (09:13)
[2021-05-12] MEDS: CYCLOBENZAPRINE 10 MG TABLET PO ×3 (09:13→21:19)
[2021-05-12] MEDS: CELECOXIB 200 MG CAPSULE PO ×2 (09:13→21:19)
--- NOTE | 2021-05-12 10:45 | PM.PNPO.1 ---
Subjective Subjective Date Patient Seen: 05/12/21 Time Patient Seen: 10:45 Interval history: Doing well over night, ambulating in the campos. Exam Vital Signs (past 8 hours): - 05/12/21 06:00 05/12/21 08:36 Temperature 97.9 F Pulse Rate 86 Respiratory Rate 16 Blood Pressure 110/66 Pulse Oximetry 98 98 Oxygen Delivery Method Room Air Oxygen Flow Rate 0 Narrative Exam Narrative: benign abdomen with serous drains. No infection Objective Labs Result Diagrams: 05/12/21 05:10 05/11/21 04:40 Labs: Laboratory Results - last 24 hr 05/12/21 05:10 Hct 23.4 L PFSH Medical History (Updated 05/08/21 @ 06:38 by Wanda Huynh, RN) Diverticulitis Diverticulosis Eczema Glaucoma History of arthritis History of molar Hx of pyloric stenosis IBS (irritable bowel syndrome) (2010) Obesity Sigmoid stricture Surgical History (Updated 05/08/21 @ 08:45 by Wanda Huynh, RN) History of History of surgery (1951) Hx of bilateral cataract extraction Hx of cataract surgery (01/2016) Hx of hysterectomy (1978) Hx of tonsillectomy (1954) S/P excision of lipoma Status post surgery (02/09/17) Family History Mother Ovarian cancer Father Lung cancer Social History marital status: number of children: 5 household members: spouse and children occupational status: employed Smoking Status: Former smoker alcohol intake: never substance use type: does not use Type(s) of exercise: none Assessment & Plan Post-op Postoperative Procedures: Procedures Operation Date: 05/08/21 08:45 Actual Procedure Side Surgeon s Cystoscopy w/Placement of Lighted Ureteral Stents Bilateral Cj Crane MD p Laparoscopically Assisted Sigmoid Colectomy Redd Reynolds MD Postoperative status: doing well Postoperative status narrative: s/p lap assisted sigmoid colectomy. Acute blood loss anemia with stable hct. Return of bowel function Postoperative plan: routine post-op care and ambulate Postoperative plan narrative: Remove remaining drain. Ambulate. Possible discharge Thursday.
[2021-05-12] MEDS: PRENATAL VIT,CALC/IRON/FOLIC 1 TABLET 1 TAB PO (11:00)
[2021-05-12] MEDS: PANTOPRAZOLE DR 40 MG TABLET PO (11:37)
--- NOTE | 2021-05-12 11:38 | PC.NURSE ---
Addendum entered by Renetta Ford R.N. 05/12/21 12:14: 1200 Discontinued drain as ordered by Dr Gauthier, pt tolerated well, covered with an allevyn dressing CDI, will continue to treat and monitor as ordered. Original Note: 1139: Notified Dr. Gauthier regarding Jaya drain output quantity prior to discontinuing drain. No new order, per Dr. Gauthier discontinue in anticipation of discharge on 05/13.
--- NOTE | 2021-05-12 13:30 | PT.IPTN ---
Current Diagnoses Diverticulitis of intestine, part unspecified, without perforation or abscess without bleeding (05/08/21) Surgery Performed Operation Date: 05/08/21 08:45 Actual Procedures s Cystoscopy w/Placement of Lighted Ureteral Stents(Bilateral) - Cj Crane MD p Laparoscopically Assisted Sigmoid Colectomy - Redd Reynolds MD Physical Therapy Treatment Note M2 PT-IP Current Condition Start: 05/09/21 13:52 Freq: NEEDED Status: Active Protocol: Document 05/12/21 13:30 MA (Rec: 05/12/21 13:46 MA [id number]) Physical Therapy Current Condition Current Condition Evaluation Date 05/09/21 Treatment Diagnosis s/p colectomy; difficulty in walking Onset Date 05/08/21 M3 PT-IP Subjective Start: 05/09/21 13:52 Freq: NEEDED Status: Active Protocol: Document 05/12/21 13:30 MA (Rec: 05/12/21 13:46 MA [id number]) Subjective Physical Therapy Visit Type Type Treatment Note Visit Start Time 13:16 Visit Stop Time 13:30 Total Visit Minutes 14 Number of EFFICIENCY MINER Visits 3 Physical Therapy Visit Comments Patient Comments Agreeable to PT, daughter present in room Therapy Pain Assessment Pain When Pain Assessed During Mobility Pain Present Pain Present Pain Reported Location right abd Intensity 2 Scale Used Numeric (0 - 10) Pain Management Techniques Re-positioning,Timing of Activity with Medications M4 PT-IP Mobility and Gait Start: 05/09/21 13:52 Freq: NEEDED Status: Active Protocol: Document 05/12/21 13:30 MA (Rec: 05/12/21 13:46 MA [id number]) PT-Bed Mobility Assessment Rolling Type of Rolling Log Rolling,Roll to Right Supine to Sit Supine to Sit Standby Assistance Sit to Supine Sit to Supine Standby Assistance Scooting Scooting to Edge of Bed Standby Assistance PT-Transfer Assessment Sit to and From Stand Sit to and from Stand Standby Assistance,1 Person Assistance,Use of Upper Extremities Equipment Transfer Assistive Device Gait Belt,Front Wheeled Walker Orthotic/Prosthetic Devices or Brace: No Transfers Transfer Destination Bed,Chair Transfer Technique Ambulated w/ and w/o AD Transfer Ability Level of Assist Standby Assistance,Contact Guard Assistance,1 Person Assistance Comments Mobility Comments Pt is finishing up in bathroom with her daughter assisting when EFFICIENCY MINER arrives. She transfers to chair SBA to [facility] and then is SBA for sit<>stand with gait belt and FWW. She ambulates initially down hallway using FWW and then is able to progress to no AD, SBA with gait belt. She ambulates ~800 feet around hospital and nurses stations before returning to bed SBA. She is able to perform all bed mobility correctly without breaking her precautions, SBA. Gait Assessment Gait Gait Assistance Required: Standby Assistance Distance (Feet) 800 Able to Maintain Weight Bearing Status Yes During Gait Assistive Devices Assistive Device Gait Belt,Front Wheeled Walker Orthotic/Prosthetic Devices or Brace: No Gait Deviations General Gait Pattern Decreased Stride Length, Decreased Feet Clearance Factors Limiting Gait Function Factors Limiting Gait Function Decreased Activity Tolerance, Decreased Strength Comments Gait Comments Pt able to progress from FWW to no AD, gait belt, SBA. PT-Balance Assessment Sitting Balance and Reactions Static Sitting Balance Ability Good Dynamic Sitting Balance Ability Good Standing Balance and Reactions Static Standing Balance Ability Good Dynamic Standing Balance Ability Good Device Used FWW M5 PT-IP Objective Assessments Start: 05/09/21 13:52 Freq: NEEDED Status: Active Protocol: Document 05/09/21 11:20 AB (Rec: 05/09/21 14:05 AB [id number]) Orientation Orientation/Cognition Level of Alertness Alert Orientation Name,Situation Language Function Ability Hard of Hearing Safety Awareness Decreased Safety Awareness Memory Description Short Term Impaired Gross Range of Motion Lower Extremity ROM Assessment Within Functional Limits Strength Lower Extremity Strength Hip 4-/5 Knee 4-/5 Sensation Assessment Sensation Gross Sensation WNL Muscle Tone Muscle Tone WNL Yes M6 PT-IP Treatment Start: 05/09/21 13:52 Freq: NEEDED Status: Active Protocol: Document 05/12/21 13:30 MA (Rec: 05/12/21 13:46 MA [id number]) Physical Therapy Treatment Education Education Provided Precautions,Safety M7 PT-IP Assessment and Plan Start: 05/09/21 13:52 Freq: NEEDED Status: Active Protocol: Document 05/12/21 13:30 MA (Rec: 05/12/21 13:46 MA [id number]) PT Summary Assessment and Plan Potential Rehabilitation Potential Good Status of Condition at Evaluation Evolving Summary Impairments Pain,ROM,Strength,Balance, Coordination,Sensation,Tone, Cognition,Bed Mobility, Transfers,Gait,Activity Tolerance Progress Towards Goals Progressing Toward Goals Assessment Summary Pt is able to progress to no AD during ambulation. She is SBA for all bed mobility, gait training, and transfers between bed<>chair. She follows all precautions throughout tx and can repeat abdominal precautions to EFFICIENCY MINER at beginning of tx. Daughter states that FWW has arrived for home use if pt needs it and they are debating setting up HHPT. Discussed with pt and daughter that pt will likely not need HHPT due to excellent progress made since pt was admitted. Goals Bed Mobility Goal Independent Transfer Goal Independent,Front Wheeled Walker Gait Goal Independent,Front Wheel Walker Gait Distance 200 Other Goals improve ambulation without AD 250 ft mod I up/down 5 steps L rail ascending mod I Days to Meet Goals 10 Frequency of Treatment Frequency Of Treatment Once a Day Treatment Plan Physical Therapy Treatment Plan Bed Mobility Training,Transfer Training,Gait Training, Therapeutic Exercise,Balance Retraining,Post Op Education, Discharge Planning,Hot or Cold Pack,Neuromuscular Re-ed, Coordination Retraining,Manual Therapy Precautions Abdominal Surgery Precautions Log Roll,Lifting Restrictions, Gait Belt above Incisional Area Recommendations To Nursing Amount of Assist Needed 1 Person Assist Discharge Recommendations PT Discharge Recommendations Home with Assistance,Home Health Equipment Needed for Home Before Pt has FWW for d/c Discharge Transportation Needs at Discharge Private Vehicle
[2021-05-12 16:00] VITALS: BP 108/63; PULSE 82; RESP 17; TEMP 36.6; O2SAT 98
[2021-05-12] MEDS: DOCUSATE 100 MG CAPSULE PO (21:19)
[2021-05-12 21:30] VITALS: BP 109/70; PULSE 94; RESP 18; TEMP 36.6; O2SAT 97
[2021-05-13] MEDS: OXYCODONE IR 5 MG TABLET PO ×2 (00:03→06:18)
[2021-05-13] MEDS: ACETAMINOPHEN 325 MG TABLET 650 MG PO ×2 (00:04→06:18)
[2021-05-13 06:20] VITALS: TEMP 36.1
[2021-05-13 06:30] VITALS: BP 110/70; PULSE 87; RESP 20; O2SAT 97
[2021-05-13] MEDS: ENOXAPARIN 40 MG/0.4 ML SYRINGE SUBCUT (08:48)
[2021-05-13] MEDS: CELECOXIB 200 MG CAPSULE PO (08:48)
[2021-05-13] MEDS: PRENATAL VIT,CALC/IRON/FOLIC 1 TABLET 1 TAB PO (08:48)
[2021-05-13] MEDS: DOCUSATE 100 MG CAPSULE PO (08:48)
[2021-05-13] MEDS: CYCLOBENZAPRINE 10 MG TABLET PO (08:48)
[2021-05-13] MEDS: LATANOPROST 0.005% OPHTH 2.5 ML 1 DROPS EYE-BOTH (08:49)
[2021-05-13] MEDS: DORZOLAMIDE/TIMOLOL OPHTH 10 ML 1 DROPS EYE-BOTH (08:49)
--- NOTE | 2021-05-13 13:19 | P.DS_ITS ---
History of Present Illness History of Present Illness Chief complaint: Lap Assisted Colectomy w/ISG & Cysto w/Rice Narrative: 70 F here for elective sigmoid colectomy secondary to diverticular disease. History of perforated diverticular disease with abscess. Discharge Providers Provider Date of admission: 05/08/21 07:42 Discharge Date: 05/13/21 Primary care physician: Rajesh Ashton MD Consults: 05/08/21 13:47 Consult to Occupational Therapy Evaluate & Treat Comment: Physician Instructions: Evaluate and treat Consult to Physical Therapy Evaluate & Treat Comment: Physician Instructions: Evaluate and Treat 05/09/21 14:45 Consult to Respiratory Therapy Evaluate & Treat Comment: Physician Instructions: Evaluate and treat Discharge provider: Redd Reynolds MD Summary Hospital Course Discharge Diagnosis: sp colectomy Hospital Course: Underwent laparoscopic assisted sigmoid colectomy 05/08. Post operative recovery was unremarkable. Diet was advanced pain was well controlled had return of bowel function. Status at Discharge Cognitive/behavioral status at discharge: oriented Functional status at discharge: independent ambulation Overall status at discharge: patient is back to baseline Exam Vital Signs (past 8 hours): - 05/13/21 06:20 05/13/21 06:30 Temperature 97.0 F L Pulse Rate 87 Respiratory Rate 20 Blood Pressure 110/70 Pulse Oximetry 97 Oxygen Delivery Method Room Air Oxygen Flow Rate 0 Narrative Exam Narrative: Gen-Adult woman alert and oriented Chest- non labored resp Abdomen-Soft midline CDI. Objective Labs Result Diagrams: 05/12/21 05:10 05/11/21 04:40 [facility] Medical History (Updated 05/08/21 @ 06:38 by Wanda Huynh RN) Diverticulitis Diverticulosis Eczema Glaucoma History of arthritis History of molar Hx of pyloric stenosis IBS (irritable bowel syndrome) (2010) Obesity Sigmoid stricture Surgical History (Updated 05/08/21 @ 08:45 by Wanda Huynh RN) History of History of surgery (1951) Hx of bilateral cataract extraction Hx of cataract surgery (01/2016) Hx of hysterectomy (1978) Hx of tonsillectomy (1954) S/P excision of lipoma Status post surgery (02/09/17) Family History Mother Ovarian cancer Father Lung cancer Social History marital status: number of children: 5 household members: spouse and children occupational status: employed Smoking Status: Former smoker alcohol intake: never substance use type: does not use Type(s) of exercise: none Discharge Plan Discharge Plan Patient Disposition: Home Provider Discharge Comment: -Okay to shower tomorrow. -Do not submerge wounds in water until seen in follow-up. -No lifting >20 lbs x 4 weeks. -Walking only for exercise for 4 weeks. -No driving while taking narcotics. Nursing Discharge Comment: pt ready for discharge Discharge orders & Medications Prescriptions: New docusate sodium [Colace] 100 mg capsule 100 mg PO BID Qty: 30 0RF oxycodone 5 mg tablet See Rx Instructions .ROUTE .COMPLEX PRN (Reason: pain) Qty: 30 0RF Rx Instructions: 1-2 tabs every 6 hrs as needed for pain acetaminophen [Tylenol] 325 mg capsule 650 mg PO QID PRN (Reason: pain) Qty: 60 0RF Continued latanoprost [Xalatan] 0.005 % drops 1 drp EYE-BOTH BID Qty: 0 0RF meloxicam 7.5 mg tablet 7.5 mg PO DAILY 0RF dorzolamide-timolol 22.3-6.8 mg/mL drops 1 drp EYE-BOTH BID 0RF Label Comments: INSTILL 1 DROP IN THE BOTH EYES TWICE DAILY Discontinued Suprep Bowel Prep Kit 17.5-3.13-1.6 gram recon soln See Rx Instructions PO .COMPLEX Qty: 354 0RF Rx Instructions: DILUTE; drink full amount early evening before AND next morning at least 2 hr before procedure; follow w 32 oz. water PO metronidazole 500 mg tablet 1,000 mg PO TID Qty: 6 0RF Rx Instructions: 2 tabs every 8 hrs day before surgery neomycin 500 mg tablet 1 g PO TID 0 Days Qty: 6 0RF Rx Instructions: TAKE 2 tabs at 1 PM, 2 PM, and 10 PM the day prior to surgery Follow up/Referrals: Redd Reynolds MD [Physician] - 1 Week Diet/Activity/Treatments Diet: Diet as Tolerated Activity: as tolerated Skin/Wound/Dressing Care Report to your healthcare provider any signs of infection, such as:: chills, fever, increased pain, unusual drainage and unusual redness Visit Report/Discharge Packet Instructions: DI for Colectomy, DI for Prescription Opioid Use, [facility]: Wound Care Stand Alone Forms: Surgery Discharge Discharge Data Primary Care Provider: Rajesh Ashton
== END 2021-05-13 09:20 | disposition home or self-care (01) | DRG 330 ==
LOC: AC 09:08 → ICU 05-09 12:26
PROVIDERS: Surgery; Urology; Admitting Provider Surgery; Family Provider Family Medicine; PCP Family Medicine; Referring Provider Surgery; Visit Provider Surgery
PROC: 0T9B80Z Drainage of Bladder with Drainage Device, Via Natural or Artificial Opening Endoscopic (ICD-10-PCS; principal; 2021-05-08 08:45)
PROC: 0DTE0ZZ Resection of Large Intestine, Open Approach (ICD-10-PCS; 2021-05-08 08:45)
DX: K57.32 Diverticulitis of large intestine without perforation or abscess without bleeding (principal); K56.699 Other intestinal obstruction unspecified as to partial versus complete obstruction; D62 Acute posthemorrhagic anemia; K66.0 Peritoneal adhesions (postprocedural) (postinfection); E66.9 Obesity, unspecified; Z20.822 Contact with and (suspected) exposure to COVID-19; K29.70 Gastritis, unspecified, without bleeding; H40.9 Unspecified glaucoma; Z87.891 Personal history of nicotine dependence; Z68.34 Body mass index [BMI] 34.0-34.9, adult
CPT/HCPCS: 36415; 44204; 52005; 80048; 82962; 85014; 85025; 87635; 97116; 97162; 97166; 97530; 97535; C9803; J1100; J1170; J1650; J1885; J2405; J2543; J2704; J3010

== ENCOUNTER → 2022-03-06 09:45 | Outpatient (CLI) | payer MEDICARE, BC, SELFPAY ==
[2021-05-23 14:34] VITALS: BMI 34.3
--- NOTE | 2022-03-06 | DI.RAD.S_ITS ---
PROCEDURE: XR FOOT RT MIN 3V INDICATIONS: right foot pain TECHNIQUE: 3 views of the foot were acquired. COMPARISON: None. FINDINGS: Bones: No fractures or dislocations. Mild hallux valgus deformity. No suspicious bony lesions. Small plantar calcaneal spur. Soft tissues: No tibiotalar joint effusion. Achilles tendon appears normal. IMPRESSION: Mild degenerative changes in the foot. Dictated by: Lazaro Haley M.D. on 03/06/2022 at 13:26 Approved by: Lazaro Haley M.D. on 03/06/2022 at 13:27
== END ==
PROVIDERS: Family Provider Family Medicine; PCP Family Medicine; Referring Provider Chiropractor; Visit Provider Chiropractor
DX: M79.671 Pain in right foot (principal); M20.11 Hallux valgus (acquired), right foot; M77.31 Calcaneal spur, right foot
CPT/HCPCS: 73630

== ENCOUNTER → 2022-04-17 13:36 | Outpatient (CLI) | payer MEDICARE, BC, SELFPAY ==
[2021-05-23 14:34] VITALS: BMI 34.3
--- NOTE | 2022-04-17 | DI.RAD.S_ITS ---
PROCEDURE: XR LUMBAR SPINE MIN 4V INDICATIONS: low back pain TECHNIQUE: 5 views of the lumbar spine acquired, including flexion and extension views. COMPARISON: [facility], , -SPINE 2-3 VIEWS, 12/06/2010, 9:33. FINDINGS: Bones: 5 nonrib-bearing vertebrae are present. There is normal bony alignment. No vertebral body compression fractures. No suspicious bony lesions. Disc space narrowing and hypertrophic facet joints renal lower lumbar spine with grade 1 anterior spondylolisthesis at L5-S1 Soft tissues: Overlying bowel gas pattern is normal. No suspicious soft tissue calcifications. Oblique images unremarkable IMPRESSION: Degenerative disc disease and arthropathy in the lower lumbar spine Approved by: Hosea Freeman M.D. on 04/17/2022 at 18:45
== END ==
PROVIDERS: Family Provider Family Medicine; PCP Family Medicine; Referring Provider Chiropractor; Visit Provider Chiropractor
DX: M51.36 Other intervertebral disc degeneration, lumbar region (principal); M47.816 Spondylosis without myelopathy or radiculopathy, lumbar region; M54.50 Low back pain, unspecified
CPT/HCPCS: 72110

== ENCOUNTER → 2023-09-04 10:47 | Outpatient (CLI) | payer MEDICARE, OTHER, SELFPAY ==
[2021-05-23 14:34] VITALS: BMI 34.3
[2023-09-04 11:53] LABS: BUN Creatinine Ratio 26.4 (6-22); Blood Urea Nitrogen 19 mg/dL (7-17); Calcium 9.2 mg/dL (8.4-10.2); Carbon Dioxide 29 mmol/L (22-32); Chloride 107 mmol/L (98-107); Estimated Glomerular Filt Rate > 60 mL/min (>60); Glucose 103 mg/dL (80-110); HEMOLYSIS < 15 (0-50); Potassium 4.2 mmol/L (3.4-5.1); Sodium 139 mmol/L (137-145)
== END ==
PROVIDERS: Family Provider Family Medicine; PCP Family Medicine; Referring Provider Surgery; Visit Provider Surgery
DX: K43.2 Incisional hernia without obstruction or gangrene (principal)
CPT/HCPCS: 36415; 80048

== ENCOUNTER → 2023-09-07 08:01 | Outpatient (CLI) | payer MEDICARE, OTHER, SELFPAY ==
[2021-05-23 14:34] VITALS: BMI 34.3
--- NOTE | 2023-09-07 08:03 | DI.CT.S_ITS ---
PROCEDURE: CT ABDOMEN PELVIS W CON INDICATIONS: Incisional hernia eval TECHNIQUE: After the administration of intravenous contrast, axial sections acquired from the lung bases to the pubic symphysis. Coronal and sagittal reformats were performed. For radiation dose reduction, the following was used: automated exposure control, adjustment of mA and/or kV according to patient size. COMPARISON: [facility], CT, CT ABDOMEN PELVIS W CON, 12/27/2019, 13:06. FINDINGS: Image quality: Diagnostic. Lower Chest: No significant findings. ABDOMEN: Liver: No solid mass. Gallbladder: No radiopaque gallstones or wall thickening. Biliary ducts: No biliary dilation. Pancreas: No ductal dilation. Spleen: Size is within normal limits. Adrenal Glands: No adrenal nodules. Kidneys and Ureters: No hydronephrosis. No solid mass. No complex renal cystic lesion which requires follow up. Stomach and Bowel: Small hiatal hernia. Status post partial colectomy. Normal colonic caliber, without significant wall thickening. Normal caliber appendix. Peritoneum: No abnormal intraperitoneal fluid. No free air. Ventral Wall: There are 5 ventral hernias going from superior to inferior as follows: -The 2 superior most ventral hernias contain fat with fascial defect measuring approximately 0.5 cm and 1.0 cm in SI dimension, respectively (4/43). -Immediately below that is a predominantly fat containing hernia with partial herniation of transverse colon. Fascial defect measuring approximately 1.4 cm in SI dimension (4/41) and 3.6 centimeters in ML dimension (2/38). -fat containing ventral hernia containing nonobstructing small bowel with fascial defect measuring approximately 3.5 centimeters in SI dimension (4/40) and 7.0 centimeters in ML dimension (2/44). -inferior-most hernia contains fat and nonobstructing small bowel with fascial defect measuring 3.8 centimeters in SI dimension (4/45) and 3.6 centimeters in ML dimension (2/68). Abdominal Nodes: No retroperitoneal or mesenteric adenopathy by size criteria. Vessels: Aorta and inferior vena cava are normal in size. PELVIS: Pelvic Organs: Unremarkable. Bladder: No bladder wall thickening, accounting for underdistention. Pelvic Nodes: No enlarged lymph nodes. Miscellaneous: No inguinal hernias are seen. Bones: No aggressive osseous abnormality. IMPRESSION: Multiple ventral hernias as described above with the 3 most inferior containing fat nonobstructive bowel. Approved by: Evelyn Rivas M.D.,Ph.D. on 09/07/2023 at 20:39
== END ==
PROVIDERS: Family Provider Family Medicine; PCP Family Medicine; Referring Provider Surgery; Visit Provider Surgery
DX: K43.2 Incisional hernia without obstruction or gangrene (principal); K44.9 Diaphragmatic hernia without obstruction or gangrene; Z90.49 Acquired absence of other specified parts of digestive tract
CPT/HCPCS: 74177; Q9967

== ENCOUNTER 2023-10-28 07:32 | Inpatient (IN) | payer MEDICARE, OTHER, SELFPAY ==
[2021-05-23 14:34] VITALS: BMI 34.3
[2023-10-26 13:07] VITALS: BMI 33.7
--- NOTE | 2023-10-27 07:43 | PM.HP.1 ---
History of Present Illness History of Present Illness Date Patient Seen: 10/28/23 Chief complaint: Open ventral hernia repair *OPB* Narrative: 73F with a large bowel containing ventral hernia here for elective open repair. Multiple prior abdominal surgeries pyloromyotomy, sigmoid colectomy, laparotomy and hysterectomy. [facility] Medical History Obesity Sigmoid stricture History of arthritis History of molar IBS (irritable bowel syndrome) (2010) Eczema Diverticulosis Diverticulitis Hx of pyloric stenosis Glaucoma Surgical History Hx of bilateral cataract extraction S/P excision of lipoma History of surgery (1951) Hx of cataract surgery (01/2016) History of Hx of hysterectomy (1978) Hx of tonsillectomy (1954) Status post surgery (02/09/17) Family History Mother Ovarian cancer Father Lung cancer Social History marital status: number of children: 5 household members: spouse and children occupational status: employed Smoking Status: Former smoker alcohol intake: never substance use type: does not use Type(s) of exercise: none Meds Home Medications and Allergies Home Medications Medication Instructions Recorded Confirmed Type latanoprost 0.005 % eye drops 1 drp EYE-BOTH BID ##0 07/09/11 10/28/23 History (Xalatan) meloxicam 7.5 mg tablet 7.5 mg PO DAILY 11/22/20 10/28/23 History dorzolamide 22.3 mg-timolol 6.8 1 drp EYE-BOTH 10/28/23 History mg/mL eye drops Allergies Allergy/AdvReac Type Severity Reaction Status Date / Time adhesive [ADHESIVE] Allergy Mild redness Verified 10/28/23 07:49 Exam Narrative Exam Narrative: Gen-Adult woman alert and oriented Chest-Non labored resp Abdomen-Large ventral hernia reducible. Assessment & Plan Assessment and plan (1) Incisional hernia: Problem details: 73F with a large bowel containing ventral here for a open ventral hernia repair. Overview of the operation risks hemorrhage, infection, bowel injury benefits and alternatives reviewed. She provides consent to proceed. Qualifiers: Obstruction and gangrene presence: without obstruction or gangrene Qualified Code(s): K43.2 - Incisional hernia without obstruction or gangrene Status: Acute Time-Based Coding :: [TOTAL MINUTES] spent with patient and on the chart (including review of chart, obtaining history, exam, reviewing outside data, placing orders, documenting exam and treatment plan, and counseling patient) on [DATE].
[2023-10-28] VITALS (16 sets, daily range): BP systolic 102–128; BP diastolic 50–84; PULSE 78–103; RESP 12–19; TEMP 36.1–37.2; O2SAT 94–99; BMI 34.4
[2023-10-28] MEDS: LACTATED RINGERS 1,000 ML 21 ML IV (08:16)
[2023-10-28] MEDS: ACETAMINOPHEN 325 MG TABLET 975 MG PO (08:18)
[2023-10-28] MEDS: CEFAZOLIN 2 GM/100 ML PREMIX 100 ML IV (10:15)
--- NOTE | 2023-10-28 10:25 | SUR.OPER ---
Supine on padded OR bed, head on pillow, arms secured on padded arm boards at <90 degrees abduction, legs uncrossed, safety belt at thigh, tape over blanket over lower legs.
[2023-10-28] MEDS: BUPIVACAINE 0.25% (PF) VIAL 30 ML INJ (10:45)
[2023-10-28] MEDS: BUPIVACAINE LIPOSOME 266 MG/20 ML VIAL INJ (12:27)
--- NOTE | 2023-10-28 12:31 | PC.NURSE ---
Day shift: Not in room 204 at this time
--- NOTE | 2023-10-28 13:03 | P.OP_ITS ---
Operative Date/Time/Diagnoses Date of procedure: 10/29/23 Time of procedure: 07:12 Pre-op diagnosis: Incisional hernia Post-op diagnosis: same Procedure & Clinicians Procedure: Incisional ventral hernia repair reducible Enterolysis Component separation Implantation of mesh for fascial reinforcement Same procedure as scheduled: Yes Indications: 73-year-old woman history of pyloromyotomy, laparotomy sigmoid colectomy with a large bowel containing reducible incisional hernia containing 5 separate hernias along the anterior midline from above the level of the umbilicus to the pubis. Surgeon: Redd Reynolds Lower In Supervisor: Abe Sapp Anesthesia Type: General Operative Notes Findings: Swish cheese defect extending superior to the umbilicus to the pubis containing bowel. The total length of the hernia in maximal dimension is 25 cm Specimen(s): none sent Estimated Blood Loss (mL): 50 Procedure in detail: Patient was brought to the operating room placed supine on the table. Bilateral lower extremity compression devices were applied. General anesthesia was induced and she was intubated with an endotracheal tube. She received 2 g of Ancef prior to skin incision. A Lynch catheter was sterilely placed She was prepped and draped in sterile fashion. Time-out was performed. The previous midline incision from superior to the umbilicus to the pubis was incised. The subcutaneous tissue was divided. The fascia was elevated with Mattie hours in the abdomen was entered atraumatically. The extent of the incisional hernia was approximately 25 cm in maximal length. There were extensive intra-abdominal adhesions between the small bowel to the anterior abdominal wall and interloop adhesions. The adhesions were sharply lysed until there was complete mobilization of the small bowel and colon. The hernia sac was then excised. A incision on the posterior sheath was made on each side allowing access to the retro rectus space. The space was developed using blunt dissection and hemoclips. We spared as much of the neurovascular branches as possible. Development of the retro rectus space on the right side was quite difficult as she had had a previous paramidline incision on the right side resulting in scarring but between the components of the abdominal wall. The abdominal wall could not be closed without undue tension. Therefore we proceeded with a component separation. Subcutaneous flaps were developed bilaterally exposing the anterior rectus sheath. A vertical incision was made through the anterior sheath at the lateral aspect of the rectus muscle from the costal margin to the pubis. This allowed advancement of the entire rectus sheath bilaterally towards the midline allowing closure without tension. The posterior fascia was then closed in a running manner using Vicryl suture. We placed a 30 x 15 cm piece of macro porous polypropylene mesh within the retro rectus space and this was secured to the posterior fascia using Tisseel. The midline fascia was then closed with 1. PDS suture. Bilateral 19 German Jaya drains were placed into the subcutaneous space and secured using nylon. The sponge and instrument count at the end of the operation was correct x2. The skin was then closed with josé miguel. She tolerated the operation well and was transferred to the recovery room in stable condition. Complications: none Post-operative Condition: stable Disposition: observation
[2023-10-28] MEDS: hydrOXYzine 50 MG/ML INJ 25 MG IM (13:44)
[2023-10-28] MEDS: OXYCODONE IR 5 MG TABLET PO ×2 (14:04→20:24)
[2023-10-28] MEDS: DEXTROSE 5%-0.45% NS 1,000 ML 100 ML IV ×2 (14:38→23:52)
--- NOTE | 2023-10-28 14:44 | PC.NURSE ---
Day shift: In room from PACu at approx 1425. Sleepy and reports pain with movement. VS WNL. On 2L NC 97%. ABD binder in place. Op-site covered with Aquacel (CDI). Also 2 MARILEE drain sites that are CDI. Drains are labeled left and right. Dr Reynolds is seeing Pt at this time ([id number]). Friend/family in room for support. Will continue with post-op plan of care. Agrees to not get OOB w/o help from staff. Lynch in place and draining yellow.
--- NOTE | 2023-10-28 15:09 | OT.IPNOTE ---
Per nurse, pt not ready and just got up from extensive abdominal surgery. Able to talk to pt's daughter of home set-up, no charge. To check on pt tomorrow for OT apolinar.
--- NOTE | 2023-10-28 16:48 | PT-IP ANOTE ---
PT apolinar received. EMR reviewed but currently no operative note yet from surgeon. talked with nurse and stated that pt is very sleepy and not ready for PT. will f/u.
[2023-10-28] MEDS: ACETAMINOPHEN 325 MG TABLET 650 MG PO (20:24)
[2023-10-28] MEDS: CALCIUM CARBONATE 500 MG TAB 1000 MG PO (23:38)
[2023-10-29] VITALS (14 sets, daily range): BP systolic 104–114; BP diastolic 65–70; PULSE 91–110; RESP 17–19; TEMP 36.2–36.6; O2SAT 92–96
[2023-10-29] MEDS: ACETAMINOPHEN 325 MG TABLET 650 MG PO ×3 (04:37→19:50)
[2023-10-29] MEDS: OXYCODONE IR 5 MG TABLET PO ×5 (04:39→23:38)
--- NOTE | 2023-10-29 07:30 | PM.PNPO.1 ---
Subjective Subjective Date Patient Seen: 10/29/23 Time Patient Seen: 07:30 Interval history: Postoperative day 1 status post repair of large incisional hernia with adhesion lysis and component separation. Overall she is feeling fairly well but has not yet mobilized. Exam Vital Signs (past 8 hours): - 10/29/23 00:00 10/29/23 01:00 10/29/23 04:00 Pulse Rate 110 H 105 H Respiratory Rate 19 19 Blood Pressure 107/65 111/70 Pulse Oximetry 95 93 95 Oxygen Delivery Method Nasal Cannula Oxygen Flow Rate 2 10/29/23 05:00 Pulse Rate Respiratory Rate Blood Pressure Pulse Oximetry 95 Oxygen Delivery Method Nasal Cannula Oxygen Flow Rate 2 Oxygen Delivery Method Nasal Cannula Oxygen Flow Rate 2 Narrative Exam Narrative: General adult woman alert oriented no acute distress Chest nonlabored respiration Abdomen soft appropriately tender to palpation. MARILEE drains serosanguineous. PFSH Medical History Obesity Sigmoid stricture History of arthritis History of molar IBS (irritable bowel syndrome) (2010) Eczema Diverticulosis Diverticulitis Hx of pyloric stenosis Glaucoma Surgical History Hx of bilateral cataract extraction S/P excision of lipoma History of surgery (1951) Hx of cataract surgery (01/2016) History of Hx of hysterectomy (1978) Hx of tonsillectomy (1954) Status post surgery (02/09/17) Family History Mother Ovarian cancer Father Lung cancer Social History marital status: number of children: 5 household members: spouse and children occupational status: employed Smoking Status: Former smoker alcohol intake: never substance use type: does not use Type(s) of exercise: none Assessment & Plan Post-op Postoperative Procedures: Procedures Operation Date: 10/28/23 08:45 Actual Procedure Side Surgeon p Hernia Repair Ventral Redd Reynolds MD Postoperative plan narrative: 73-year-old woman postop day 1 status post repair of a large incisional ventral hernia with extensive adhesiolysis and component separation. Overall she is doing fairly well. -DC IV fluid -remove Lynch catheter -out of bed ambulate, physical therapy -SCDs and Lovenox -anticipate discharge home later today with drains
[2023-10-29] MEDS: LATANOPROST 0.005% OPHTH 2.5 ML 1 DROPS EYE-BOTH ×2 (08:34→19:50)
[2023-10-29] MEDS: ENOXAPARIN 40 MG/0.4 ML SYRINGE SUBCUT (08:35)
--- NOTE | 2023-10-29 10:03 | OT.IP.EVAL ---
Current Diagnoses Incisional hernia without obstruction or gangrene (10/28/23) Surgery Performed Operation Date: 10/28/23 08:45 Actual Procedures p Hernia Repair Ventral - Redd Reynolds MD Past Medical History (Last Reviewed 10/12/23 @ 18:22 by Redd Reynolds MD) Diverticulitis Diverticulosis Eczema Glaucoma History of arthritis History of molar Hx of pyloric stenosis IBS (irritable bowel syndrome) (2010) Obesity Sigmoid stricture Surgical History (Last Reviewed 10/12/23 @ 18:22 by Redd Reynolds MD) History of History of surgery (1951) Hx of bilateral cataract extraction Hx of cataract surgery (01/2016) Hx of hysterectomy (1978) Hx of tonsillectomy (1954) S/P excision of lipoma Status post surgery (02/09/17) Occupational Therapy Inpatient Evaluation/Re-Eval M1 PT/OT-IP Prior Functional Status Start: 10/28/23 15:12 Freq: NEEDED Status: Active Protocol: Document 10/29/23 10:16 [facility] (Rec: 10/29/23 10:26 [facility] [id number]) Medical Review Prior Functional Status Medical History Reviewed Yes Diet/Fluid Consistency Regular Communication WNLs Mobility and Gait I, 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 Additional Social History Comment Daughter and in home and can assist pt M2 OT-IP Current Condition Start: 10/28/23 15:12 Freq: Status: Active Protocol: Document 10/29/23 10:16 [facility] (Rec: 10/29/23 10:26 [facility] [id number]) Occupational Therapy Current Condition Current Condition Evaluation Date 10/29/23 Treatment Diagnosis Open Ventral Hernia repair Diagnosis Onset Date 10/28/23 Post Operative Precautions Abdominal Surgery Precautions Log Roll,Lifting Restrictions, Gait Belt above Incisional Area M3 OT- IP Subjective and Pain Start: 10/28/23 15:12 Freq: Status: Active Protocol: Document 10/29/23 10:16 [facility] (Rec: 10/29/23 10:26 [facility] [id number]) OT- Subjective Occupational Therapy Visit Type Type Initial Evaluation Visit Start Time 09:30 Visit Stop Time 10:03 Occupational Therapy Visit Comments Patient Comments Pt agreed to get up. Patient/Caregiver Goals TO go home. OT Pain Assessment Pain When Pain Assessed During Mobility Pain Present Pain Present Pain Reported Location right abd Intensity 3 Scale Used Numeric (0 - 10) M4 OT- IP ADL's Start: 10/28/23 15:12 Freq: Status: Active Protocol: Document 10/29/23 10:16 [facility] (Rec: 10/29/23 10:26 [facility] [id number]) OT RCE-Ciow-Obqoboz General Evaluation Self-Feeding Ability Independent OT ADL-Grooming General Evaluation Grooming Ability Standby Assistance Comments OT Grooming Comments Set-up while seated. OT ADL-Oral Care General Eval Oral Care Ability Independent Comments Oral Care Comments WHile seated. OT ADL-Dressing General Eval Lower Body Dressing Ability Maximum Assistance Comments OT Dressing Comments Pt has green chain marker at home to assist with needs and wears sandals. In addition her daughter and spouse will be able to assist. OT ADL-Toileting General Evaluation Toileting Ability Total Assistance Areas Needing Assistance Empty Catheter or Colostomy Comments OT Toileting Comments Lynch in place. Suggested use of wipes and toilet paper aid to increase ease for hygiene needs. OT ADL-Bathing Comments OT Bathing Comments Not performed. M5 OT- IP IADL's Start: 10/28/23 15:12 Freq: Status: Active Protocol: Document 10/29/23 10:16 [facility] (Rec: 10/29/23 10:26 [facility] [id number]) OT-Instrumental Activities of Daily Living Home Safety Awareness Awareness of Need for Assistance at Home Good Awareness Ability to Problem Solve Emergency Able to Problem Solve Situations Home Safety Comments Pt has supportive family to assist with all needs. Medication Management Medication Management No Deficits Identified Money Management Money Management No Deficits Identified Meal Preparation Meal Preparation Caregiver Provides Assist Storage And Backup Administrator Storage And Backup Administrator Caregiver Provides Assist M6 OT- IP Functional Cognition Start: 10/28/23 15:12 Freq: Status: Active Protocol: Document 10/29/23 10:16 [facility] (Rec: 10/29/23 10:26 [facility] [id number]) Cognitive Factors Limiting Selfcare Function Cognitive Ability Level of Alertness Alert Patient Orientation Name,Age,Birthday,Month,Date, Year,Day of Week,Place, Situation Attention Span Ability Capable of Focused Attention, Capable of Sustained Attention Ability to Follow Commands Able to Follow Multi-Step Commands Cognitive Comments Cognitive Assessment Comments Pt is intact with no deficits . OT- Vision and Hearing OT- Hearing Assessment OT- Hearing Assessment Hearing Impaired,Use of Hearing Aids OT- Vision Assessment Visual Acuity WFL Visual Attentiveness WFL Occular Pursuits WFL Vision Assessment Comments Glasses for distance M7 OT- IP Mobility and Balance Start: 10/28/23 15:12 Freq: Status: Active Protocol: Document 10/29/23 10:16 [facility] (Rec: 10/29/23 10:26 [facility] [id number]) OT- Bed Mobility Assessment Supine to Sit Supine to Sit Assist Minimal Assistance OT-Transfer Assessment Sit to and From Stand Sit to and from Stand Minimal Assistance Transfers Transfer Ability Minimal Assistance Technique Transfer Destination Bed Comments Mobility Comments Pt on RA and O2 form 90-94%. MARA to asist to get her trunk upright and MARA for transfer with FWW. OT- Balance Assessment Sitting Balance and Reactions Static Sitting Balance Ability Good Dynamic Sitting Balance Ability Fair Standing Balance and Reactions Static Standing Balance Ability Fair Dynamic Standing Balance Ability Fair M8 OT- IP Objective Assessments Start: 10/28/23 15:12 Freq: Status: Active Protocol: Document 10/29/23 10:16 [facility] (Rec: 10/29/23 10:26 [facility] [id number]) OT Gross Range of Motion Upper Extremity Range of Motion Assessment Within Functional Limits OT Strength Comments Strength Comments NT due to abdominal sx. M9 OT- IP Assessment and Plan Start: 10/28/23 15:12 Freq: Status: Active Protocol: Document 10/29/23 10:16 [facility] (Rec: 10/29/23 10:26 [facility] [id number]) OT Summary Assessment and Plan Potential Rehabilitation Potential Excellent Analytic Complexity at Evaluation Moderate Summary OT Impairments Pain,Strength,Balance, Functional Mobility,Dressing, Toileting,Bathing,Toilet Transfers,Shower Transfers Progress Towards Goals Progressing Toward Goals Assessment Summary Pt MOD complexity and main barriers are pain, decreased activity tolerance, and steps. Pt to go home when medically stable and has a supportive family to assist. Goals Self-Feeding Goal Independent Grooming Goal Independent Dressing Goal Minimal Assistance Toileting Goal Independent Bathing Goal Minimal Assistance Toilet Transfer Goal Independent Shower Transfer Goal Contact Guard Assistance Days to Meet Goals 5 Frequency of Treatment Other frequency 5x/week Treatment Plan OT Treatment Plan ADL Training,Functional Mobility,Patient/Family Education,Discharge Planning Discharge Recommendations OT Discharge Recommendations Home with Assistance Home Equipment Needs Toilet paper aid Transportation Needs at Discharge Private Vehicle
--- NOTE | 2023-10-29 10:13 | PT.IIE ---
Current Diagnoses Incisional hernia without obstruction or gangrene (10/28/23) Surgery Performed Operation Date: 10/28/23 08:45 Actual Procedures p Hernia Repair Ventral - Redd Reynolds MD Surgical History (Last Reviewed 10/12/23 @ 18:22 by Redd Reynolds MD) History of History of surgery (1951) Hx of bilateral cataract extraction Hx of cataract surgery (01/2016) Hx of hysterectomy (1978) Hx of tonsillectomy (1954) S/P excision of lipoma Status post surgery (02/09/17) Medical History (Last Reviewed 10/12/23 @ 18:22 by Redd Reynolds MD) Diverticulitis Diverticulosis Eczema Glaucoma History of arthritis History of molar Hx of pyloric stenosis IBS (irritable bowel syndrome) (2010) Obesity Sigmoid stricture Physical Therapy Inpatient Evaluation/Re-Eval M1 PT/OT-IP Prior Functional Status Start: 10/28/23 15:12 Freq: NEEDED Status: Active Protocol: Document 10/29/23 09:25 MB (Rec: 10/29/23 10:13 MB [id number]) Medical Review Prior Functional Status Medical History Reviewed Yes Diet/Fluid Consistency Regular Communication WNLs Mobility and Gait I, 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 Additional Social History Comment Daughter and in home and can assist pt M2 PT-IP Current Condition Start: 10/29/23 09:27 Freq: NEEDED Status: Active Protocol: Document 10/29/23 09:25 MB (Rec: 10/29/23 10:13 MB [id number]) Physical Therapy Current Condition Current Condition Evaluation Date 10/29/23 Treatment Diagnosis S/p incisional ventral hernia repair 10/28/23 M3 PT-IP Subjective Start: 10/29/23 09:27 Freq: NEEDED Status: Active Protocol: Document 10/29/23 09:25 MB (Rec: 10/29/23 10:13 MB [id number]) Subjective Physical Therapy Visit Type Type Initial Evaluation Visit Start Time 09:25 Visit Stop Time 09:55 Number of ANALYTICAL SCIENTIST Visits 0 Physical Therapy Visit Comments Patient Comments Pt reports no pain at rest in bed and 3-4/10 pain with rolling Therapy Pain Assessment Pain When Pain Assessed During Mobility Pain Present Pain Present Pain Reported Location right abd Intensity 4 Scale Used Numeric (0 - 10) M4 PT-IP Mobility and Gait Start: 10/29/23 09:27 Freq: NEEDED Status: Active Protocol: Document 10/29/23 09:25 MB (Rec: 10/29/23 10:13 MB [id number]) PT-Bed Mobility Assessment Rolling Type of Rolling Roll to Left Level of Assist Minimal Assistance,1 Person Assistance Supine to Sit Supine to Sit Minimal Assistance,Bedrails Scooting Scooting to Edge of Bed Minimal Assistance PT-Transfer Assessment Sit to and From Stand Sit to and from Stand Minimal Assistance,1 Person Assistance,Use of Upper Extremities Equipment Transfer Assistive Device Gait Belt,Front Wheeled Walker Orthotic/Prosthetic Devices or Brace: No Transfers Transfer Destination Chair Transfer Technique Stepping Transfer Ability Level of Assist Minimal Assistance,1 Person Assistance,Use of Upper Extremities Comments Mobility Comments Slow and antalgic gait. O2 sats on RA in supine are 89-92 % and O2 sats on RA with sitting, standing and once sitting up in chair are 94%. Encouraged pt to use incentive spirometer. BP and HR in LUE: supine 99/66, 95; sitting 117 /71, 111; standing after stepping to chair 104/70, 115 Gait Assessment Gait Gait Assistance Required: Minimum Assistance Distance (Feet) 2 Able to Maintain Weight Bearing Status Yes During Gait Assistive Devices Assistive Device Gait Belt,Front Wheeled Walker Orthotic/Prosthetic Devices or Brace: No Gait Deviations General Gait Pattern Antalgic,Decreased Stride Length,Decreased Feet Clearance,Flexed Trunk,Step-to Gait,Wide Based Gait Factors Limiting Gait Function Factors Limiting Gait Function Decreased Activity Tolerance, Pain,Poor Balance PT-Balance Assessment Sitting Balance and Reactions Static Sitting Balance Ability Fair Dynamic Sitting Balance Ability Fair Standing Balance and Reactions Static Standing Balance Ability Fair Dynamic Standing Balance Ability Fair Device Used RW M5 PT-IP Objective Assessments Start: 10/29/23 09:27 Freq: NEEDED Status: Active Protocol: Document 10/29/23 09:25 MB (Rec: 10/29/23 10:13 [id number]) Orientation Orientation/Cognition Level of Alertness Alert Safety Awareness Understands Safety Issues Memory Description No Deficits Noted Comments No memory deficits noted and pt responds appropriately to all questions, reports awareness of log rolling from previous surgeries Gross Range of Motion Lower Extremity ROM Assessment Within Functional Limits Strength Lower Extremity Strength Assessment Within Functional Limits Sensation Assessment Sensation Gross Sensation WNL Muscle Tone Muscle Tone WNL Yes M6 PT-IP Treatment Start: 10/29/23 09:27 Freq: NEEDED Status: Active Protocol: Document 10/29/23 09:25 MB (Rec: 10/29/23 10:13 [id number]) Physical Therapy Treatment Exercises Exercises Ankle Pumps Education Education Provided Precautions Other Treatments Other Treatment Performed Encouraged pt to use incentive spirometer M7 PT-IP Assessment and Plan Start: 10/29/23 09:27 Freq: NEEDED Status: Active Protocol: Document 10/29/23 09:25 MB (Rec: 10/29/23 10:13 [id number]) PT Summary Assessment and Plan Potential Rehabilitation Potential Good Status of Condition at Evaluation Evolving Summary Impairments Pain,ROM,Strength,Balance,Bed Mobility,Transfers,Gait, Activity Tolerance Progress Towards Goals Progressing Toward Goals,Slow Progress due to Pain Assessment Summary Pt is a 73 y/o female who underwent incisional ventral hernia repair last date. She has history of abdominal surgery. Daughter nearby for assessment. O2 sats on RA stabilize when pt gets up to chair and start a little low in supine. Pt denies dizziness when up though BP does drop sitting to standing. Pt presents with slow and painful mobility but anticipate good progress with function. She will have good assistance at home from daugther and spouse. Goals Bed Mobility Goal Independent Transfer Goal Independent,Front Wheeled Walker Gait Goal Independent,Front Wheel Walker Gait Distance 100 Other Goals Pt will ascend and descend 5 steps with left rail ascend and no more than CGA to allow safe home entrance. Days to Meet Goals 5 Frequency of Treatment Frequency Of Treatment Once a Day Treatment Plan Physical Therapy Treatment Plan Bed Mobility Training,Transfer Training,Gait Training, Therapeutic Exercise,Balance Retraining,Post Op Education, Discharge Planning,Hot or Cold Pack,Neuromuscular Re-ed, Coordination Retraining,Manual Therapy Precautions Abdominal Surgery Precautions Log Roll,Lifting Restrictions, Gait Belt above Incisional Area Weight Bearing Status Allowed Weight Bearing Amount (enter % No WB restrictions or #) (%) Recommendations To Nursing Amount of Assist Needed 1 Person Assist Discharge Recommendations PT Discharge Recommendations Home with Assistance Transportation Needs at Discharge Private Vehicle
--- NOTE | 2023-10-29 11:55 | CM.DANOTE ---
Initial DCP Assessment Visit Note Reviewed EMR and team rounds for status updates. Met with pt and her dtr at bedside to introduce self and role, pt was found to be resting in bed, c/o pain, grimacing, still had a catheter in and was requiring O2 at the time of this visit. Pt resides in her own home with her and dtr here in [place]. Her dtr will be driving her home once she's medically cleared for d/c, likely tomorrow 10/29. Payor: Medicare Attending: Dr. Reynolds Pt is a 73 year-old F post-op day 1 from an elective hernia repair surgery. She had a large bowel containing ventral hernia, surgery required a large incision and multiple adhesions were found. She has a prior hx of multiple abdominal surgeries, including pyloromyotomy, sigmoid clectomy, laparotomy, and hysterectomy. Both her dtr and will be providing postoperative care for her. This QUARTER SECTION IRONER will speak again with pt prior to d/c to assess the need for Home Health referral and any further evolving needs. Discharge Planning/Care Management CM Discharge Assessment Start: 10/29/23 11:22 Freq: Status: Active Protocol: Document 10/29/23 11:23 DPL (Rec: 10/29/23 11:55 DPL [id number]) Discharge Planning Assessment Assigned Field Service Manager KEON Corrales Advance Directives? No History Provided By Patient,Family Member,Medical Record Has Patient been admitted in last 30 No days? Prior Living Arrangements House Household Members spouse,children Type of transporation used prior to Relies on Others admit Independent with ADL's Yes Is patient alert and oriented? Yes Caregiver for Another No DME Already Rented / Owned Elevated Toilet Seat,FWW / Walker,Cane Comment No anticipated home d/c needs at this time. Barriers to Discharge No Comment Home w/family, r/o need or request for HH closer to [place] Discharge Plan Home Transportation Arrangement Family Additional Comment Will discuss Home Health as an option for pt prior to d/c. Whiteboard Updated in Patient Room with Yes name and ext. # of Field Service Manager Review Status In Process Please Provide Date Initial DC 10/29/23 Assessment Was Performed Pre-Anesthesia Assessment Start: 10/26/23 13:07 Freq: Status: Active Protocol: Document 10/26/23 13:07 TC (Rec: 10/26/23 13:11 TC [id number]) Pre-Anesthesia Assessment Patient Information Reviewed Via Chart Review Assessment Completed With Other H&P Completed Within 30 Days No Primary Care Provider Sheryl Ashton Medical Clearance Received Not Applicable Seen Specialist in Last 12 Months Yes Specialist Seen General surgeon Preferred Language Wolof [employer] Coating Machine Operator Required No Height 162.56 cm Weight 89.358 kg Body Mass Index (BMI) 33.7 Hearing Ability Normal Visual Impairment No Limitations Hx Anesthesia Reactions Yes: Hard time keeping me under, slow to wake after colonoscopy Hx Family Anesthesia Reaction No Hx Malignant Hyperthermia No Hx Blood Transfusions No Hx Blood Transfusion Reaction No Anesthesia Review Requested No Skein Inspector No alcohol intake never Smoking Status Former smoker how long ago did patient quit smoking Quit as a teen Substance Use Type does not use Is patient on oxygen? No Does patient have BRAVO/SOB No Hx Sleep Apnea No CPAP/BIPAP use not prescribed Currently Taking a Beta Carole No Hx Chest Pain No Hx SOB No Hx Syncope or Dizziness No Anti-Coagulant Therapy No Has a Weight Control Engineer No Cardiac Testing No Hx Pacemaker/ICD No Pacemaker Rep Required? No Cardiac Clearance Received Not Applicable Genitourinary Symptoms Abdominal Discomfort Hx Urinary Self Catheterization No Diabetes No Patient No Lactating No Hx Drug Resistant Organism No Presence of External or Internal Medical Yes: Bilateral IOLs Devices Received a COVID vaccine? No Marital Status Lives With spouse,children Support System Family Patient Discharge Plan Description Return Home Do You Have Any Spiritual Beliefs That No May Affect Your HC Choices? Do You Have Any Cultural Practices That No May Affect Your HC Choices? Emergency Contact Name Crissy (daughter) Emergency Contact Advance Directives? No Power of Tableau Developer No
[2023-10-30 01:00] VITALS: BP 116/62; PULSE 97; RESP 17; TEMP 36.3; O2SAT 94
[2023-10-30] MEDS: OXYCODONE IR 5 MG TABLET PO ×4 (02:50→15:13)
[2023-10-30] MEDS: ACETAMINOPHEN 325 MG TABLET 650 MG PO (02:50)
[2023-10-30 05:45] VITALS: BP 119/64; PULSE 94; RESP 17; TEMP 36.5; O2SAT 96
[2023-10-30] MEDS: ENOXAPARIN 40 MG/0.4 ML SYRINGE SUBCUT (08:59)
[2023-10-30 09:00] VITALS: BP 101/64; PULSE 103; RESP 16; TEMP 36.6; O2SAT 92
[2023-10-30] MEDS: LATANOPROST 0.005% OPHTH 2.5 ML 1 DROPS EYE-BOTH (09:00)
[2023-10-30] MEDS: MELOXICAM 7.5 MG TABLET PO (09:00)
--- NOTE | 2023-10-30 09:25 | PT.IPTN ---
Current Diagnoses Incisional hernia without obstruction or gangrene (10/28/23) Surgery Performed Operation Date: 10/28/23 08:45 Actual Procedures p Hernia Repair Ventral - Redd Reynolds MD Physical Therapy Treatment Note M2 PT-IP Current Condition Start: 10/29/23 09:27 Freq: NEEDED Status: Active Protocol: Document 10/29/23 09:25 MB (Rec: 10/29/23 10:13 MB [id number]) Physical Therapy Current Condition Current Condition Evaluation Date 10/29/23 Treatment Diagnosis S/p incisional ventral hernia repair 10/28/23 M3 PT-IP Subjective Start: 10/29/23 09:27 Freq: NEEDED Status: Active Protocol: Document 10/30/23 09:25 AB (Rec: 10/30/23 12:28 AB [id number]) Subjective Physical Therapy Visit Type Type Treatment Note Visit Start Time 09:25 Visit Stop Time 10:05 Number of BLEACH MAKER Visits 0 Physical Therapy Visit Comments Patient Comments agreeable to do PT Therapy Pain Assessment Pain When Pain Assessed At Rest Pain Present Pain Present Pain Reported Location right abd Scale Used pain scale not stated; increases with mobility Pain Management Techniques Distraction,Modification of Treatment,Re-positioning, Timing of Activity with Medications M4 PT-IP Mobility and Gait Start: 10/29/23 09:27 Freq: NEEDED Status: Active Protocol: Document 10/30/23 09:25 AB (Rec: 10/30/23 12:28 AB [id number]) PT-Bed Mobility Assessment Rolling Type of Rolling Log Rolling Level of Assist Maximal Assistance Sit to Supine Sit to Supine Maximum Assistance,Bedrails PT-Transfer Assessment Sit to and From Stand Sit to and from Stand Contact Guard Assistance,1 Person Assistance,Use of Upper Extremities Equipment Transfer Assistive Device Gait Belt,Front Wheeled Walker Orthotic/Prosthetic Devices or Brace: No Transfers Transfer Destination Toilet Transfer Technique ambulated Transfer Ability Level of Assist Contact Guard Assistance,1 Person Assistance,Use of Upper Extremities Comments Mobility Comments pt sitting on the chair and agreeable to do PT. pt unable to recall her abdominal precautions. reviewed abdominal precautions and log roll bed mobility. pt requested to use the toilet. BP: 121/65. O2 sat at RA: 92- 93%. completed sit to stand CGA and ambulated to the toilet using FWW CGA ~ 10 ft. pt was able to complete toileting needs SBA. ambulated from the toilet to the sink using FWW CGA. able to maintain standing using FWW for support CGA while doing handwashing. daughter arrived . pt ambulated back to chair. pt sat back on chair and rested. O2 sat 96%. in sitting . NAC in room to mange pt's drains. pt agreed to do stairs. pt completed sit to stand from chair CGA and ambulated to the stairs using FWW CGA ~ 100 ft. O2 sat during walking 90-91%. pt completed stairs holding on L rail with B hands ascending CGA. educated daughter on how to assist pt. O2 sat decreased to 85% during stair climbing. cued pt for deep breathing. Assisted pt back to her room. pt ambulated from w/c to EOB CGA. O2 sat: 91%. completed log roll sit to supine max A and cues. daughter was able to assist pt. pt stated that she knows how to use the safety belt. positioned pt in bed. call light and table placed within reach. O2 sat decreasing to ~ 87% supine and pt sleepy. provided pt with supplemental o2. nurse informed. Left pt with daughter. Gait Assessment Gait Gait Assistance Required: Contact Guard Assist Distance (Feet) 100 Able to Maintain Weight Bearing Status Yes During Gait Assistive Devices Assistive Device Gait Belt,Front Wheeled Walker Orthotic/Prosthetic Devices or Brace: Yes Gait Deviations General Gait Pattern Decreased Stride Length, Decreased Feet Clearance,Step- to Gait Factors Limiting Gait Function Factors Limiting Gait Function Decreased Activity Tolerance, Decreased Strength,Limited Range of Motion,Pain,Poor Balance,Poor Safety Awareness Stair Climbing Assessment Evaluation Level of Assist On Stairs Contact Guard Assistance,1 Person Assistance Devices Stair Climbing Assistive Devices Left Railing Technique/Endurance Stair Climbing Direction Ascend and Descend Stair Climbing Technique Step to Step Number of Steps Climbed 3 Stair Climbing Set # Repetitions (reps) 1 M5 PT-IP Objective Assessments Start: 10/29/23 09:27 Freq: NEEDED Status: Active Protocol: Document 10/29/23 09:25 MB (Rec: 10/29/23 10:13 MB [id number]) Orientation Orientation/Cognition Level of Alertness Alert Safety Awareness Understands Safety Issues Memory Description No Deficits Noted Comments No memory deficits noted and pt responds appropriately to all questions, reports awareness of log rolling from previous surgeries Gross Range of Motion Lower Extremity ROM Assessment Within Functional Limits Strength Lower Extremity Strength Assessment Within Functional Limits Sensation Assessment Sensation Gross Sensation WNL Muscle Tone Muscle Tone WNL Yes M6 PT-IP Treatment Start: 10/29/23 09:27 Freq: NEEDED Status: Active Protocol: Document 10/30/23 09:25 AB (Rec: 10/30/23 12:28 AB [id number]) Physical Therapy Treatment Education Education Provided Precautions,Safety M7 PT-IP Assessment and Plan Start: 10/29/23 09:27 Freq: NEEDED Status: Active Protocol: Document 10/30/23 09:25 AB (Rec: 10/30/23 12:28 AB [id number]) PT Summary Assessment and Plan Potential Rehabilitation Potential Fair Summary Impairments Pain,ROM,Strength,Balance, Coordination,Sensation,Tone, Cognition,Bed Mobility, Transfers,Gait,Activity Tolerance Progress Towards Goals Slow Progress due to Pain,Slow Progress due to Activity Tolerance Assessment Summary pt requiring max A for bed mobility and CGA for transfers and ambulation using FWW. daughter able to assist pt and also was able to get a FWW for pt to use at home. pt may go home when medically stable . Goals Bed Mobility Goal Independent Transfer Goal Independent,Front Wheeled Walker Gait Goal Independent,Front Wheel Walker Gait Distance 100 Other Goals Pt will ascend and descend 5 steps with left rail ascend and no more than CGA to allow safe home entrance. Days to Meet Goals 5 Frequency of Treatment Frequency Of Treatment Once a Day Treatment Plan Physical Therapy Treatment Plan Bed Mobility Training,Transfer Training,Gait Training, Therapeutic Exercise,Balance Retraining,Post Op Education, Discharge Planning,Hot or Cold Pack,Neuromuscular Re-ed, Coordination Retraining,Manual Therapy Precautions Abdominal Surgery Precautions Log Roll,Lifting Restrictions, Gait Belt above Incisional Area Recommendations To Nursing Amount of Assist Needed 1 Person Assist Discharge Recommendations PT Discharge Recommendations Home with Assistance Transportation Needs at Discharge Private Vehicle
--- NOTE | 2023-10-30 10:46 | CM.DPC ---
Addendum entered by KEON Sanford 10/30/23 15:55: DCP Updated: DCP entered room and met with pt and daughter prior to discharge. DCP discussed HH referral, pt declined referral. DCP discussed re-assessing need when pt has follow up with PCP. Pt agreed with plan. ARLINE Mauro Original Note: DCP Continued: Reviewed EMR and team rounds for pt?s medical status. Per hospitalist, pt should be cleared for discharge today with MARILEE drains. Patient is ambulating but has needed 2L O2, this is to be monitored and staff hopeful pt can wean prior to discharge. No discharge needs identified at this time. Plan: Anticipating discharge with daughter to transport when medically cleared. CM Team will continue to follow for coordination of discharge plans. ARLINE Mauro
--- NOTE | 2023-10-30 11:36 | OT.IPNOTE ---
Pt doing well and and to go home today. Pt to order a toilet paper aid for home use.
[2023-10-30 12:00] VITALS: BP 111/71; PULSE 102; RESP 16; TEMP 36.6; O2SAT 97
--- NOTE | 2023-10-30 12:12 | PC.NURSE ---
Addendum entered by Brittaney Alcaraz R.N. 10/30/23 16:07: Teaching instructions for MARILEE drains given w/understanding. Pt escorted by staff via W/C to waiting vehicle D/C in stable post op status. Addendum entered by Brittaney Alcaraz R.N. 10/30/23 15:34: Pt ambulating several time in hallway. SpO2 ranging from 89-92% Discharge orders received, Home instructions given and shown instructions Original Note: Pt ambulated hallway this morning w/o incidence. SL intact/patent. Abdominal dsg w/ several old shawdow drainage spots. 2 MARILEE drains intact/patent. Call light w/in reach, pt calls appropriately for needs. Continue w/plan of care
[2023-10-30 13:00] VITALS: O2SAT 92
--- NOTE | 2023-11-09 06:32 | P.DS_ITS ---
History of Present Illness History of Present Illness Date Patient Seen: 10/28/23 Time Patient Seen: 06:32 Chief complaint: Open ventral hernia repair *OPB* Narrative: 73F with a large bowel containing ventral incisional hernia here for elective open repair. Multiple prior abdominal surgeries pyloromyotomy, sigmoid colectomy, laparotomy and hysterectomy. Discharge Providers Provider Date of admission: 10/28/23 07:32 Discharge Date: 10/30/23 Primary care physician: Rajesh Ashton MD Consults: 10/28/23 13:00 Consult to Occupational Therapy Evaluate & Treat Comment: Physician Instructions: Evaluate and treat Consult to Physical Therapy Evaluate & Treat Comment: Physician Instructions: Evaluate and Treat 10/29/23 07:10 Consult to Physical Therapy Evaluate & Treat Comment: Physician Instructions: Evaluate and Treat Discharge provider: Redd Reynolds MD Summary Hospital Course Discharge Diagnosis: Incisional hernia Obesity Hospital Course: She underwent an open incisional hernia repair with enterolysis and component separation 10/28/23. Post operatively she had acute abdominal pain requiring IV pain medication. She was transitioned to PO medication and by 10/29 was appropriate for discharge home. Unremarkable postoperative course. Exam Vital Signs (past 8 hours): Oxygen Delivery Method Nasal Cannula Oxygen Flow Rate 1.5 Narrative Exam Narrative: Gen-Adult woman alert and oriented Abdomen-Soft appropriately tender to palpation. [facility] Medical History Obesity Sigmoid stricture History of arthritis History of molar IBS (irritable bowel syndrome) (2010) Eczema Diverticulosis Diverticulitis Hx of pyloric stenosis Glaucoma Surgical History Hx of bilateral cataract extraction S/P excision of lipoma History of surgery (1951) Hx of cataract surgery (01/2016) History of Hx of hysterectomy (1978) Hx of tonsillectomy (1954) Status post surgery (02/09/17) Family History Mother Ovarian cancer Father Lung cancer Social History marital status: number of children: 5 household members: spouse and children occupational status: employed Smoking Status: Former smoker alcohol intake: never substance use type: does not use Type(s) of exercise: none Discharge Plan Discharge Plan Patient Disposition: Home Provider Discharge Comment: -Okay to shower tomorrow -drains are ready for removal less than 50 mL per day per drain -Do not submerge wounds in water until seen in follow-up. -No lifting >10 lbs x 4 weeks. -Walking only for exercise for 4 weeks. -No driving while taking narcotics. Discharge orders & Medications Prescriptions: New docusate sodium [Colace] 100 mg capsule 100 mg PO BID Qty: 30 0RF acetaminophen 500 mg capsule 1,000 mg PO Q6H PRN (Reason: pain) Qty: 60 0RF oxycodone 5 mg tablet 5 mg PO Q6H PRN (Reason: pain) Qty: 30 0RF Continued latanoprost [Xalatan] 0.005 % drops 1 drp EYE-BOTH BEDTIME Qty: 0 meloxicam 7.5 mg tablet 7.5 mg PO DAILY Follow up/Referrals: Redd Reynolds MD [Physician] - Diet/Activity/Treatments Diet: Diet as Tolerated Skin/Wound/Dressing Care Report to your healthcare provider any signs of infection, such as:: chills, fever, increased pain, unusual drainage and unusual redness Visit Report/Discharge Packet Stand Alone Forms: Patient Portal/API, Stroke Signs & Symptoms Discharge Data Primary Care Provider: Rajesh Ashton
== END 2023-10-30 15:15 | disposition home or self-care (01) | DRG 337 ==
LOC: OR 10-29 07:49 → AC 10-29 07:49
PROVIDERS: Admitting Provider Surgery; Family Provider Family Medicine; PCP Family Medicine; Referring Provider Surgery; Visit Provider Surgery
PROC: 0WUF0JZ Supplement Abdominal Wall with Synthetic Substitute, Open Approach (ICD-10-PCS; principal; 2023-10-28 08:45)
DX: K43.2 Incisional hernia without obstruction or gangrene (principal); K66.0 Peritoneal adhesions (postprocedural) (postinfection)
CPT/HCPCS: 82962; 94760; 97116; 97161; 97166; 97530; 97535; C9290; J0690; J1100; J1170; J1650; J2405; J2704; J3010; J3410; J3490

== ENCOUNTER → 2023-11-21 17:24 | Outpatient (CLI) | payer MEDICARE, OTHER, SELFPAY ==
[2023-10-28 15:57] VITALS: BMI 34.4
[2023-11-21 18:14] LABS: Influenza A - CEPHEID Flu A NEGATIVE (NEGATIVE); Influenza B - CEPHEID Flu B NEGATIVE (NEGATIVE); Respiratory Syncytial Virus Negative (Negative)
[2023-11-21 18:25] LABS: COVID-19 CEPHEID 4-PLEX PCR Negative (Negative)
== END ==
PROVIDERS: Family Provider Family Medicine; PCP Family Medicine; Visit Provider Physician Assistant Surgical
DX: R05.1 Acute cough (principal)
CPT/HCPCS: 0241U

== ENCOUNTER 2023-11-21 17:29 | Emergency (ER) | payer MEDICARE, OTHER, SELFPAY ==
[2023-10-28 15:57] VITALS: BMI 34.4
[2023-11-21] VITALS (8 sets, daily range): BP systolic 96–118; BP diastolic 57–73; PULSE 98–122; RESP 20–23; TEMP 36.6; O2SAT 91–95; BMI 33.1
--- NOTE | 2023-11-21 17:45 | EKG_ITS ---
[facility] [place] [id number] [place] [id number] Test Date: 2023-11-21 Pat Name: Veronica Dupont Department: Room: Gender: Female Care Taker: SHAYY : 1950 Requested By: Order Number: [id number] Reading MD: Antoine Cunningham MD Measurements Intervals [place] Rate: 109 P: 35 IA: 140 QRS: -46 QRSD: 76 T: 44 QT: 324 QTc: 436 Interpretive Statements Sinus tachycardia Left axis deviation Pulmonary disease pattern Minimal voltage criteria for LVH, may be normal variant ( R in aVL ) Nonspecific T wave abnormality NO PRIOR TRACING Electronically Signed On 11-23-2023 7:53:01 PDT by Antoine Cunningham MD
--- NOTE | 2023-11-21 17:45 | DI.CT.S_ITS ---
PROCEDURE: CT ANGIO CHEST PE PROTOCOL INDICATIONS: short of breath post op TECHNIQUE: After the administration of intravenous contrast, 2 mm thick sections acquired from the pulmonary apices to the posterior costophrenic angles. 3-dimensional maximum intensity projection (MIP) coronal and sagittal reformats were then acquired through the thorax. For radiation dose reduction, the following was used: automated exposure control, adjustment of mA and/or kV according to patient size. COMPARISON: [facility], CT, CT ABDOMEN PELVIS W CON, 09/07/2023, 9:06. FINDINGS: Image quality: Diagnostic. Pulmonary arteries: Pulmonary arteries are normal in size, and demonstrate no intraluminal filling defects to suggest central pulmonary embolism. Lower Neck: No enlarged lymph nodes. Thyroid: No thyroid nodules which require sonographic follow up, per consensus guidelines. Axillae: No enlarged lymph nodes. Chest Wall: Unremarkable. Bones: Age-appropriate bony degenerative changes are seen. Accentuated thoracic kyphosis is seen. Lungs and Pleura: No pneumothorax or pleural effusions. There is abnormal ground-glass opacity seen within the lungs, primarily seen centrally and dependently. No bri superimposed infiltrates are seen. Heart: Heart size is mildly enlarged. No pericardial effusion. Thoracic Vessels: No aortic aneurysm. Mediastinum and Geetha: No enlarged lymph nodes. Esophagus: No wall thickening. No hiatal hernia. Upper Abdomen: Visualized upper abdomen solid organs and bowel loops appear normal. IMPRESSION: No pulmonary embolus. Abnormal ground-glass opacity can be seen within the lungs, which is consistent with pulmonary edema. There is mild cardiomegaly. Dictated by: Neeraj Hua M.D. on 11/21/2023 at 17:57 Approved by: Neeraj Hua M.D. on 11/21/2023 at 17:59
[2023-11-21 17:53] LABS: Add Manual Diff / Slide Review NO; Basophils Absolute Auto 100 /uL (0-100); Basophils Percent Auto 0.8 % (0-2); Eosinophils Absolute Auto 600 /uL (0-450); Eosinophils Percent Auto 5.5 % (2-4); Hematocrit 37.5 % (36-46); Hemoglobin 12.4 g/dL (12.0-16.0); Lymphocytes Absolute Auto 1300 /uL (1100-4500); Mean Corpuscular HGB Conc 33.2 % (30-36); Mean Corpuscular Hemoglobin 29.7 PG (26-34); Mean Corpuscular Volume 89.5 fL (80-100); Monocytes Absolute Auto 800 /uL (0-900); Monocytes Percent Auto 7.6 % (3-14); Neutrophils Absolute Auto 8100 /uL (1500-7000); Neutrophils Percent Auto 74.1 % (50-75); Platelet Count 264 X10^3/uL (150-400); Red Blood Cell Count 4.19 X10^6/uL (4.0-5.2); Red Cell Distribution Width 14.3 % (11.6-14.8)
[2023-11-21 17:58] LABS: Prothrombin Time 11.5 SECONDS (9.4-12.5)
[2023-11-21 18:01] LABS: PTT Partial Thromboplastin Tim 28 SECONDS (25.1-36.5)
[2023-11-21 18:13] LABS: NT-proBNP (BNP-Adult 18+) 57 pg/mL (<125)
[2023-11-21 18:15] LABS: Troponin I < 0.012 ng/mL (0.01-0.034)
[2023-11-21 18:29] LABS: Alanine Aminotransferase 13 IU/L (<35); Albumin 3.7 g/dL (3.5-5.0); Albumin Globulin Ratio 1.2 (1.0-2.8); Alkaline Phosphatase 79 U/L (38-126); Aspartate Aminotransferase 20 IU/L (14-36); BUN Creatinine Ratio 21.1 (6-22); Bilirubin Total 0.6 mg/dL (0.2-1.3); Blood Urea Nitrogen 12 mg/dL (7-17); Calcium 8.8 mg/dL (8.4-10.2); Carbon Dioxide 24 mmol/L (22-32); Chloride 105 mmol/L (98-107); Creatine Kinase 29 U/L (30-135); Estimated Glomerular Filt Rate > 60 mL/min (>60); Glucose 155 mg/dL (80-110); HEMOLYSIS < 15 (0-50); Lipase 56 U/L (23-300); Potassium 3.6 mmol/L (3.4-5.1); Sodium 137 mmol/L (137-145); Total Protein 6.7 g/dL (6.3-8.2)
--- NOTE | 2023-11-21 19:14 | ED_ITS ---
HPI - General Adult General Chief complaint: Shortness of Breath/Dyspnea Stated complaint: WIC; SoB, Cough, Lung Px Post-Op Time Seen by Provider: 11/21/23 17:45 Source: patient Mode of arrival: Ambulatory Limitations: no limitations History of Present Illness HPI narrative: patient is a 73-year-old female. Earlier this month underwent an extensive hernia repair. She states that since that time she did have some shortness of breath but seemed to think that things were improving however the past day or so she has had worsening short of breath and feeling like her heart is beating fast. No chest pain. No lightheadedness. Does have a cough. Went to the walk-in clinic. Was sent to the emergency department for further evaluation. No lower extremity swelling. No change in bowel habits or urinary changes. Related Data Home Medications Medication Instructions Recorded Confirmed latanoprost 0.005 % eye drops 1 drp EYE-BOTH BEDTIME ##0 07/09/11 11/21/23 (Xalatan) meloxicam 7.5 mg tablet 7.5 mg PO DAILY 11/22/20 11/21/23 Previous Rx's Medication Instructions Recorded acetaminophen 500 mg capsule 1,000 mg (2 x 500 mg) PO Q6H PRN 10/30/23 pain #60 caps docusate sodium 100 mg capsule 100 mg PO BID #30 caps 10/30/23 (Colace) furosemide 20 mg tablet (Lasix) 20 mg PO DAILY #14 tabs 11/21/23 Allergies Allergy/AdvReac Type Severity Reaction Status Date / Time adhesive [ADHESIVE] Allergy Mild redness Verified 11/21/23 17:10 Review of Systems Review of Systems ROS Unobtainable: All systems reviewed & are unremarkable except as noted in HPI and below Patient History Medical History Obesity Sigmoid stricture History of arthritis History of molar IBS (irritable bowel syndrome) (2010) Eczema Diverticulosis Diverticulitis Hx of pyloric stenosis Glaucoma Surgical History Hx of bilateral cataract extraction S/P excision of lipoma History of surgery (1951) Hx of cataract surgery (01/2016) History of Hx of hysterectomy (1978) Hx of tonsillectomy (1954) Status post surgery (02/09/17) Family History Mother Ovarian cancer Father Lung cancer Social History marital status: number of children: 5 household members: spouse and children occupational status: employed Smoking Status: Former smoker alcohol intake: never substance use type: does not use Type(s) of exercise: none Smoking Status: Former smoker Substance Use Type: does not use Exam Initial Vital Signs Initial Vital Signs: Vital Signs Pulse Oximetry 91 11/21/23 17:35 Const General: cooperative, comfortable and No ill appearing HENMT Head: normal to inspection and normocephalic Resp Effort & Inspection: normal respiratory effort, no cough, not labored and tachypneic Auscultation: clear to auscultation bilaterally Cardio Rate: tachycardic Rhythm: regular rhythm GI Inspection: normal to inspection and non-distended Skin General: no rashes or lesions noted Neuro General: patient alert, patient awake and moves all extremities Extrem General: No edema Course Orders Ordered: ED Orders 11/21/23 17:44 Complete Blood Count AUTO DIFF Stat Comprehensive Metabolic Panel Stat Lipase Stat NT-proBNP (BNP-Adult 18+) Stat PTT Partial Thromboplastin Niranjan Stat Prothrombin Time INR Stat Troponin & CK Cardiac Panel Stat 11/21/23 17:45 CT angio chest PE protocol Stat EKG-12 Lead Stat Vital Signs Vital signs: Vital Signs - 8 hr 11/21/23 17:35 11/21/23 17:36 11/21/23 17:36 Temperature Pulse Rate 122 H Respiratory Rate Blood Pressure 118/73 Pulse Oximetry 91 94 Oxygen Delivery Method 11/21/23 17:37 11/21/23 17:46 11/21/23 17:46 Temperature 97.8 F Pulse Rate 122 H 114 H Respiratory Rate 20 23 Blood Pressure 118/73 102/59 L Pulse Oximetry 94 94 Oxygen Delivery Method Room Air 11/21/23 18:00 11/21/23 18:00 11/21/23 18:30 Temperature Pulse Rate 106 H Respiratory Rate 23 Blood Pressure 101/57 L 114/71 Pulse Oximetry 92 Oxygen Delivery Method 11/21/23 18:30 11/21/23 18:43 11/21/23 18:43 Temperature Pulse Rate 107 H 104 H Respiratory Rate 21 20 Blood Pressure 111/61 Pulse Oximetry 95 95 Oxygen Delivery Method Room Air 11/21/23 19:00 11/21/23 19:00 Temperature Pulse Rate 98 H Respiratory Rate 23 Blood Pressure 96/64 Pulse Oximetry 95 Oxygen Delivery Method Room Air Medical Decision Making Lab Data Lab results reviewed: Yes I reviewed the patient's lab results. 11/21/23 17:44 11/21/23 17:44 Labs: Lab Results 11/21/23 Range/Units 17:44 WBC 11.0 (4.5-11.0) X10^3/uL RBC 4.19 (4.0-5.2) X10^6/uL Hgb 12.4 (12.0-16.0) g/dL Hct 37.5 (36-46) % MCV 89.5 (80-100) fL MCH 29.7 (26-34) PG MCHC 33.2 (30-36) % RDW 14.3 (11.6-14.8) % Plt Count 264 (150-400) X10^3/uL Neut % (Auto) 74.1 (50-75) % Lymph % (Auto) 12.0 L (25-40) % Gentry % (Auto) 7.6 (3-14) % Eos % (Auto) 5.5 H (2-4) % Baso % (Auto) 0.8 (0-2) % Neut # (Auto) 8100 H (1811-8674) /uL Lymph # (Auto) 1300 (5975-6629) /uL Gentry # (Auto) 800 (0-900) /uL Eos # (Auto) 600 H (0-450) /uL Baso # (Auto) 100 (0-100) /uL PT 11.5 (9.4-12.5) SECONDS INR 1.0 (0.9-1.3) APTT 28 (25.1-36.5) SECONDS Sodium 137 (137-145) mmol/L Potassium 3.6 (3.4-5.1) mmol/L Chloride 105 (98-107) mmol/L Carbon Dioxide 24 (22-32) mmol/L BUN 12 (7-17) mg/dL Creatinine 0.57 (0.52-1.04) mg/dL Estimated GFR > 60 (>60) mL/min BUN/Creatinine Ratio 21.1 (6-22) Glucose 155 H (80-110) mg/dL Calcium 8.8 (8.4-10.2) mg/dL Total Bilirubin 0.6 (0.2-1.3) mg/dL AST 20 (14-36) IU/L ALT 13 (<35) IU/L Alkaline Phosphatase 79 (38-126) U/L Total Creatine Kinase 29 L (30-135) U/L Troponin I < 0.012 (0.01-0.034) ng/mL NT-Pro-B Natriuret Pep 57 (<125) pg/mL Total Protein 6.7 (6.3-8.2) g/dL Albumin 3.7 (3.5-5.0) g/dL Globulin 3.0 (1.7-4.1) g/dL Albumin/Globulin Ratio 1.2 (1.0-2.8) Lipase 56 (23-300) U/L Imaging Data CT scan - chest: Radiologist's Impression: PROCEDURE: CT ANGIO CHEST PE PROTOCOL INDICATIONS: short of breath post op TECHNIQUE: After the administration of intravenous contrast, 2 mm thick sections acquired from the pulmonary apices to the posterior costophrenic angles. 3-dimensional maximum intensity projection (MIP) coronal and sagittal reformats were then acquired through the thorax. For radiation dose reduction, the following was used: automated exposure control, adjustment of mA and/or kV according to patient size. COMPARISON: [facility], CT, CT ABDOMEN PELVIS W CON, 09/07/2023, 9:06. FINDINGS: Image quality: Diagnostic. Pulmonary arteries: Pulmonary arteries are normal in size, and demonstrate no intraluminal filling defects to suggest central pulmonary embolism. Lower Neck: No enlarged lymph nodes. Thyroid: No thyroid nodules which require sonographic follow up, per consensus guidelines. Axillae: No enlarged lymph nodes. Chest Wall: Unremarkable. Bones: Age-appropriate bony degenerative changes are seen. Accentuated thoracic kyphosis is seen. Lungs and Pleura: No pneumothorax or pleural effusions. There is abnormal ground-glass opacity seen within the lungs, primarily seen centrally and dependently. No bri superimposed infiltrates are seen. Heart: Heart size is mildly enlarged. No pericardial effusion. Thoracic Vessels: No aortic aneurysm. Mediastinum and Geetha: No enlarged lymph nodes. Esophagus: No wall thickening. No hiatal hernia. Upper Abdomen: Visualized upper abdomen solid organs and bowel loops appear normal. IMPRESSION: No pulmonary embolus. Abnormal ground-glass opacity can be seen within the lungs, which is consistent with pulmonary edema. There is mild cardiomegaly. ECG Data Attestation: I personally reviewed and interpreted this ECG as follows: Interpretation: Sinus tachycardia Ventricular rate 109 Left axis deviation LVH Nonspecific ST T wave changes MDM Narrative Medical decision making narrative: No leukocytosis. Clinically does not have pneumonia. Is afebrile. No productive cough. Lungs are clear. CT scan of the chest shows no pulmonary embolus on. Some question of pulmonary edema. She was not hypoxic. BNP is negative. Troponin is negative. Nonischemic EKG. Plan will be to start her on Lasix for the next couple days. also advised that she contact her primary care doctor for a follow-up. She was given very strict return precautions. She expressed understanding and agreement with plan. Discharge Plan Departure Patient Disposition: Home Clinical Impression: Shortness of breath Instructions: DI for Shortness of Breath Activity Restrictions/Additional Instructions: I recommend that you start taking the furosemide/Lasix on a daily basis in the morning. You can take it as directed. I also recommend on Thursday you contact your primary care doctor for a follow-up. Return to the emergency department for new or worsening symptoms. Prescriptions: New furosemide [Lasix] 20 mg tablet 20 mg PO DAILY Qty: 14 0RF No Action latanoprost [Xalatan] 0.005 % drops 1 drp EYE-BOTH BEDTIME Qty: 0 meloxicam 7.5 mg tablet 7.5 mg PO DAILY docusate sodium [Colace] 100 mg capsule 100 mg PO BID Qty: 30 0RF acetaminophen 500 mg capsule 1,000 mg PO Q6H PRN (Reason: pain) Qty: 60 0RF Referrals: Rajesh Ashton MD [Primary Care Provider] - Stand Alone Forms: Patient Portal/API
== END 2023-11-21 19:29 | disposition home or self-care (01) ==
PROVIDERS: Emergency Medicine; Emergency Provider Emergency Medicine; Family Provider Family Medicine; PCP Family Medicine
DX: R06.02 Shortness of breath (principal); R00.0 Tachycardia, unspecified; I51.7 Cardiomegaly; Z11.52 Encounter for screening for COVID-19; R05.1 Acute cough
CPT/HCPCS: 0241U; 36415; 71275; 80053; 82550; 83690; 83880; 84484; 85025; 85610; 85730; 93005; 93010; 99283; 99284; Q9967

== ENCOUNTER → 2023-12-01 13:30 | Outpatient (CLI) | payer MEDICARE, OTHER, SELFPAY ==
[2023-10-28 15:57] VITALS: BMI 34.4
--- NOTE | 2023-12-01 13:32 | DI.CT.S_ITS ---
PROCEDURE: CT ABDOMEN PELVIS W CON INDICATIONS: mass post hernia repair TECHNIQUE: After the administration of intravenous contrast, axial sections acquired from the lung bases to the pubic symphysis. Coronal and sagittal reformats were performed. For radiation dose reduction, the following was used: automated exposure control, adjustment of mA and/or kV according to patient size. COMPARISON: [facility], CT, CT ABDOMEN PELVIS W CON, 09/07/2023, 9:06. FINDINGS: Image quality: Diagnostic. Lower Chest: No significant findings. ABDOMEN: Liver: No solid mass. Gallbladder: No radiopaque gallstones or wall thickening. Biliary ducts: No biliary dilation. Pancreas: No ductal dilation. Spleen: Size is within normal limits. Adrenal Glands: No adrenal nodules. Kidneys and Ureters: No hydronephrosis. No solid mass. No complex renal cystic lesion which requires follow up. Stomach and Bowel: Normal colonic caliber, without significant wall thickening. Status post partial colectomy. Small hiatal hernia. Peritoneum: No abnormal intraperitoneal fluid. No free air. Ventral Wall: Postsurgical changes of the ventral wall. Previously described ventral hernias are no longer visualized. There is low attenuating fluid collection in the subcutaneous tissue of the anterior abdominal wall measuring approximately 22.2 x 6.1 by 8.7 cm (2/118, /). There is surrounding soft tissue stranding in the subcutaneous tissue. Abdominal Nodes: No retroperitoneal or mesenteric adenopathy by size criteria. Vessels: Aorta and inferior vena cava are normal in size. PELVIS: Pelvic Organs: Unremarkable. Bladder: No bladder wall thickening, accounting for underdistention. Pelvic Nodes: No enlarged lymph nodes. Miscellaneous: No inguinal hernias are seen. Bones: No aggressive osseous abnormality. IMPRESSION: Status post ventral hernia repair with large low attenuating fluid collection in the subcutaneous tissue of the ventral wall measuring up to 22.2 cm in transverse dimension. Finding favored to represent postoperative seroma; sterility cannot be assessed by imaging. Approved by: Evelyn Rivas M.D.,Ph.D. on 12/02/2023 at 1:50
== END ==
PROVIDERS: Family Provider Family Medicine; PCP Family Medicine; Referring Provider Surgery; Visit Provider Surgery
DX: Z98.890 Other specified postprocedural states (principal); Z87.19 Personal history of other diseases of the digestive system
CPT/HCPCS: 74177; Q9967

== ENCOUNTER → 2023-12-04 14:41 | Outpatient (CLI) | payer MEDICARE, OTHER, SELFPAY ==
[2023-10-28 15:57] VITALS: BMI 34.4
--- NOTE | 2023-12-04 14:42 | DI.CT.S_ITS ---
PROCEDURE: CT DRAIN SOFT TISSUE INDICATIONS: drain abdominal wall seroma TECHNIQUE: The indications, alternatives, benefits, risks, and possible complications of the procedure were communicated to the patient. Informed written consent from the patient was obtained and placed in the chart. Continuous EKG and hemodynamic monitoring was started by trained personnel. The patient was brought to the CT suite and wiener packer spiral CT imaging was performed with localization grid. The appropriate site for percutaneous access to the biopsy target was marked, was prepped and draped sterilely, and was infused with local anaesthesia. Under CT guidance, a and lost spinal needle was advanced to the anterior abdominal wall fluid collection. The trocar and needle were subsequently removed, and the patient was sent for post-procedure monitoring. COMPARISON: None. FINDINGS: Approximately 250 cc mixed cloudy yellowish to brownish fluid collection was aspirated. Medications: 1% lidocaine for local anaesthesia. Complications: None. IMPRESSION: Successful CT-guided aspiration of anterior abdominal wall fluid collection. Dictated by: Rishi Ayala M.D. on 12/08/2023 at 9:20 Approved by: Rishi Ayala M.D. on 12/08/2023 at 9:22
== END ==
LOC: CT 14:42
PROVIDERS: Family Provider Family Medicine; PCP Family Medicine; Referring Provider Surgery; Visit Provider Surgery
DX: S30.1XXA Contusion of abdominal wall, initial encounter (principal); X58.XXXA Exposure to other specified factors, initial encounter
CPT/HCPCS: 10030

== ENCOUNTER 2023-12-18 10:29 | Day surgery (SDC) | payer MEDICARE, OTHER, SELFPAY ==
[2023-10-28 15:57] VITALS: BMI 34.4
[2023-12-17 12:05] VITALS: BMI 32.8
[2023-12-18] VITALS (9 sets, daily range): BP systolic 105–127; BP diastolic 48–78; PULSE 72–96; RESP 12–23; TEMP 36.2–36.9; O2SAT 94–98; BMI 32.8
[2023-12-18] MEDS: LACTATED RINGERS 1,000 ML 42 ML IV (10:56)
--- NOTE | 2023-12-18 11:35 | PM.PREOP ---
Pre-operative Note Interval Note History & Physical reviewed/Exam performed by Physician: Yes Changes to H&P: No
[2023-12-18] MEDS: CEFAZOLIN 2 GM/100 ML PREMIX 100 ML IV (11:45)
--- NOTE | 2023-12-18 11:55 | SUR.OPER ---
Supine on padded OR bed, head on pillow, arms secured on padded arm boards at <90 degrees abduction, legs uncrossed, safety belt at thigh, tape over blanket over lower legs.
[2023-12-18] MEDS: BUPIVACAINE 0.5% W/ EPI (PF) 30 ML VIAL INJ (12:02)
--- NOTE | 2023-12-18 12:51 | PM.OP.1 ---
Operative Date/Time/Diagnoses Date of procedure: 12/18/23 Time of procedure: 13:35 Pre-op diagnosis: Abdominal wall fluid collection Post-op diagnosis: same Procedure & Clinicians Procedure: Incision and drainage of abdominal wall fluid collection Same procedure as scheduled: Yes Indications: 73-year-old woman 7 weeks status post extensive incisional ventral hernia repair with component separation and retrorectus mesh placement. She developed a large symptomatic seroma. Initially treated conservatively with observation progress to Interventional Radiology for percutaneous drainage but remains persistent causing significant abdominal pain. She is taken to the operating room today for incision and drainage. Surgeon: Redd Reynolds Click Yes if Unassisted: Yes Operative Notes Findings: Well encapsulated cavity containing what is perhaps fat necrosis and or a prior abscess. Specimen(s): other (Abdominal wall fluid collection) Estimated Blood Loss (mL): 10 Procedure in detail: Patient was brought to the operating room placed supine on the table. Bilateral lower extremity compression devices were applied. She received 2 g of Ancef prior to procedure. General anesthesia was induced she was intubated with an endotracheal tube. She was prepped and draped in sterile fashion time-out was performed. The lower midline incision was opened using a knife. Subcutaneous tissue was divided. Encountered sizable cavity with a thick rind associated with it, fairly minimal fluid now with inside the cavity however there is necrotic tissue within the cavity perhaps from fat necrosis versus prior abscess. The cavity was debrided of all non viable tissue and this was sent as specimen. The wound was then irrigated with pulse lavage. The subcutaneous tissue was then reapproximated using Vicryl suture. Skin closed with interrupted nylon suture such that the wound could drain if necessary. A total of 30 mL of 0.25% bupivacaine was used for local anesthesia. Sponge and instrument count of the end of the operation was correct x2. She tolerated the operation well and was transferred to recovery in stable condition. Complications: none Post-operative Condition: stable Disposition: same day surgery
[2023-12-18] MEDS: OXYCODONE IR 5 MG TABLET PO (13:04)
[2023-12-18] MEDS: ACETAMINOPHEN 325 MG TABLET 975 MG PO (13:11)
== END 2023-12-18 13:44 | disposition home or self-care (01) ==
PROVIDERS: Family Provider Family Medicine; PCP Family Medicine; Referring Provider Surgery; Visit Provider Surgery
PROC: (CPT 10180; principal; 2023-12-18 11:30)
DX: R18.8 Other ascites (principal)
CPT/HCPCS: 10180; 87070; 87075; 87205; J0690; J1885; J2405; J2704; J3010

== ENCOUNTER → 2024-01-15 10:27 | Outpatient (CLI) | payer MEDICARE, OTHER, SELFPAY ==
[2023-10-28 15:57] VITALS: BMI 34.4
--- NOTE | 2024-01-15 10:28 | DI.CT.S_ITS ---
PROCEDURE: CT ABDOMEN PELVIS W CON INDICATIONS: abdominal seroma post surgery TECHNIQUE: After the administration of intravenous contrast, axial sections acquired from the lung bases to the pubic symphysis. Coronal and sagittal reformats were performed. For radiation dose reduction, the following was used: automated exposure control, adjustment of mA and/or kV according to patient size. COMPARISON: [facility], CT, CT ANGIO CHEST PE PROTOCOL, 11/21/2023, 18:36. [facility], CT, CT ABDOMEN PELVIS W CON, 09/07/2023, 9:06. [facility], CT, CT ABDOMEN PELVIS W CON, 12/27/2019, 13:06. [facility], CT, CT DRAIN SOFT TISSUE, 12/04/2023, 15:44. [facility], CT, CT ABDOMEN PELVIS W CON, 12/01/2023, 14:28. FINDINGS: Image quality: Diagnostic. Lower Chest: Lingula pulmonary nodule measuring 0.9 cm, (5/5), unchanged since at least 11/13/2023. Outside the field of view in 2019. Tiny hiatal hernia. ABDOMEN: Liver: No solid mass. Gallbladder: No radiopaque gallstones or wall thickening. Biliary ducts: No biliary dilation. Pancreas: No ductal dilation. Spleen: Size is within normal limits. Adrenal Glands: No adrenal nodules. Kidneys and Ureters: No hydronephrosis. No solid mass. No complex renal cystic lesion which requires follow up. Stomach and Bowel: Normal colonic caliber, without significant wall thickening. Rectal anastomosis. Diverticulosis. Normal appendix. No small bowel obstruction. Stomach is not distended. Peritoneum: No abnormal intraperitoneal fluid. No free air. Ventral Wall: Supraumbilical rectus diastasis. Ventral abdominal wall scar. Lower abdominal wall fluid collection measuring 12.5 x 6.1 x 5.5 cm, estimated volume of 218 cc. ( and ), previously 22.1 x 7.6 x 6.6 cm, estimated volume of 576 cc. Abdominal Nodes: No retroperitoneal or mesenteric adenopathy by size criteria. Vessels: Aorta and inferior vena cava are normal in size. PELVIS: Pelvic Organs: Retroverted uterus. Bladder: No bladder wall thickening, accounting for underdistention. Pelvic Nodes: No enlarged lymph nodes. Miscellaneous: No inguinal hernias are seen. Bones: No aggressive osseous abnormality. IMPRESSION: 1. Lingula pulmonary nodule measuring 0.9 cm is unchanged. -Recommend follow-up CT chest in approximately 6 months. 2. Lower abdominal wall subcutaneous fluid collection measuring 12.5 cm and approximately 218 cc. Decreased compared to November 2023 where it measured approximately 576 cc. 3. Rectal anastomosis. No adenopathy. No intra-abdominal free fluid. Dictated by: Lazaro Haley M.D. on 01/15/2024 at 17:50 Approved by: Lazaro Haley M.D. on 01/15/2024 at 18:01
[2024-01-15 11:33] LABS: Estimated Glomerular Filt Rate > 60 mL/min (>60)
== END ==
PROVIDERS: Family Medicine; Family Provider Family Medicine; PCP Family Medicine; Referring Provider Surgery; Visit Provider Surgery
DX: S30.1XXA Contusion of abdominal wall, initial encounter (principal); R18.8 Other ascites; M62.08 Separation of muscle (nontraumatic), other site; K57.90 Diverticulosis of intestine, part unspecified, without perforation or abscess without bleeding; R91.1 Solitary pulmonary nodule; Z98.0 Intestinal bypass and anastomosis status
CPT/HCPCS: 36415; 74177; 82565; Q9967

== ENCOUNTER → 2024-04-11 07:01 | Outpatient (CLI) | payer MEDICARE, OTHER, SELFPAY ==
[2023-10-28 15:57] VITALS: BMI 34.4
--- NOTE | 2024-04-11 07:02 | DI.US.S_ITS ---
PROCEDURE: US ABDOMEN LIMITED INDICATIONS: abdominal seroma TECHNIQUE: Real-time focused scanning was performed of the abdomen, with image documentation. COMPARISON: [facility], CT, CT ABDOMEN PELVIS W CON, 01/15/2024, 11:51. [facility], US, US ABDOMEN COMPLETE, 12/22/2019, 9:29. FINDINGS/IMPRESSION: Midline, superficial collection with low-level internal echogenicity . Mild internal vascularity, without peripheral hypervascularity. This measures 6.2 x 10.5 x 2.6 cm, and probably represents a postoperative seroma. Dictated by: Manjinder Mcbride M.D. on 04/11/2024 at 8:56 Approved by: Manjinder Mcbride M.D. on 04/11/2024 at 8:58
== END ==
PROVIDERS: Family Provider Family Medicine; PCP Family Medicine; Referring Provider Surgery; Visit Provider Surgery
DX: S30.1XXA Contusion of abdominal wall, initial encounter (principal)
CPT/HCPCS: 76705; 99212

== ENCOUNTER → 2024-11-10 08:56 | Outpatient (CLI) | payer MEDICARE, OTHER, SELFPAY ==
[2023-10-28 15:57] VITALS: BMI 34.4
--- NOTE | 2024-11-10 09:01 | DI.CT.S_ITS ---
PROCEDURE: CT ABDOMEN PELVIS W CON INDICATIONS: Possible recurrent ventral hernia TECHNIQUE: After the administration of intravenous contrast, axial sections acquired from the lung bases to the pubic symphysis. Coronal and sagittal reformats were performed. For radiation dose reduction, the following was used: automated exposure control, adjustment of mA and/or kV according to patient size. COMPARISON: [facility], CT, CT ABDOMEN PELVIS W CON, 01/15/2024, 11:51. FINDINGS: Image quality: Diagnostic Lower chest: Unremarkable lung bases. The lingular nodule measuring 9 mm is stable. Small epiphrenic diverticulum. Normal heart size. Liver: Unremarkable Gallbladder and biliary system: Unremarkable, nondilated Pancreas: No ductal dilation Spleen: Nonenlarged Adrenals: No discrete nodules Kidneys: No solid renal mass. Mild bilateral pelviectasis. Normal diameter ureters. No obstructing calcified stone. Vessels and lymph nodes: The main portal vein is patent. No abdominal aortic aneurysm. No enlarged lymph nodes by size criteria. The main portal vein is patent. Bowel and peritoneum: No bowel obstruction. Anterior abdominal wall postsurgical changes are seen. Colonic diverticula. Rectosigmoid suture lines. No acute diverticular inflammation. Body wall: Wide neck ventral hernia is present, increased transverse dimension of the neck measuring 8 cm. This contains transverse colon and associated mesentery. There is also a small loop of small bowel. Decreased prior seroma in the lower abdominal wall No bowel obstruction. Pelvis: Under distended urinary bladder. Reproductive organs are unremarkable on limited CT evaluation Bones: There are degenerative changes. No aggressive appearing osseous abnormality. Left L5 pars defects, with trace anterolisthesis. IMPRESSION: Increased wide neck ventral hernia containing nonobstructed small and large bowel. Scan was performed during Valsalva. Decreased lower abdominal wall seroma. Mild bilateral renal pelviectasis with normal diameter ureters, possibly chronic UPJ obstruction. Other stable and incidental findings above. Dictated by: Catrachito Whyte M.D. on 11/10/2024 at 11:22 Approved by: Catrachito Whyte M.D. on 11/10/2024 at 11:27
[2024-11-10 09:22] LABS: Estimated Glomerular Filt Rate > 60 mL/min (>60)
== END ==
PROVIDERS: Family Provider Family Medicine; PCP Family Medicine; Referring Provider Surgery; Visit Provider Surgery
DX: K43.2 Incisional hernia without obstruction or gangrene (principal); K22.5 Diverticulum of esophagus, acquired; K57.90 Diverticulosis of intestine, part unspecified, without perforation or abscess without bleeding; N28.89 Other specified disorders of kidney and ureter
CPT/HCPCS: 36415; 74177; 82565; Q9967